=== PATIENT | male | born 1935 | race Caucasian/White ===

== ENCOUNTER → 2017-09-22 | Outpatient (CLI) | payer MEDICARE, OTHER ==
[2015-05-26 11:20] VITALS: BMI 30.6
[~2017-09-22] MED LIST: BICA50TA39 PO; CYAN20004 PO; DEGA80VI3 SQ; DIA5 PO; DIOVAN; ENZA40CA PO; HYDR-385 PO; IBU600 PO; KRIL500C2 PO; LACT1CAP6 PO; LEUP22.53 IM; LEV500 PO; LEVO75TA73 PO; LIDO700A29 TD; LISI-362 PO; LOSA25TA50 PO; MET500 PO; METF-1 PO; METFORMIN; MILK500C2 PO; MULT-977 PO; MULT1TAB54 PO; NAPR220C12 PO; PRA20 PO; PRAVASTATIN; ROSU20TA23 PO; SAW PALMETTO; TAM4 PO; TAMO10TA26 PO; TRAM-420 PO; VAL80 PO; ZOLE4VIA IV
--- NOTE | 2017-09-22 17:17 | RADIOLOGY IMAGING REPORT ---
FACILITY: [facility] PATIENT NAME: Navneet Sanabria : 1935 MR: [id number] V: [id number] EXAM DATE: ORDERING PHYSICIAN: JESUS ÁLVAREZ TECHNOLOGIST: Location: [facility] Patient: Navneet Sanabria : 1935 Visit/Account:[id number] Date of Sevice: 09/22/2017 WHOLE BODY BONE SCAN HISTORY: Prostate cancer TECHNIQUE: 21.9 mCi technetium 99m HDP was injected intravenously. Delayed anterior and posterior wh ole body gamma camera images were obtained. Additional gamma camera images: Right left lateral skull COMPARISON: MR T-spine March 05, 2016 bone scan November 26, 2015, CT abdomen pelvis November [address] of the thorax fibroid 17/09/2015 FINDINGS: Bone radiotracer activity: Increased uptake is noted at multiple contiguous ribs along the anterolat eral left chest wall. These correspond to old rib fractures. There is however a known sclerotic met astasis along the posterior aspect the left seventh rib there for as previously noted these areas of uptake may be a combination of old fractures and metastases. Increased uptake noted along the anteri or aspect of the right first rib similar to the prior study again consistent with known metastasis.. Increased uptake along the posterior right sixth rib is very faint although a similar location and a gain consistent with sclerotic metastasis on prior CT Increased uptake seen T5 similar to the prior study consistent with known metastatic focus. Increase d uptake seen over the mid to lower lumbar spine may be related to prior postsurgical changes. Previ ously noted increased uptake over the left hemisacrum is no longer seen. There is symmetric uptake o ralf the greater trochanters bilaterally likely degenerative. There is faint uptake seen along the me dial aspect of the right eighth and 10th ribs; correlation with cross-sectional imaging may be helpfu l. There are multifocal sites of degenerative type uptake as discussed in the previous dictation inc luding the shoulders the wrists the knees and the ankles Extraosseous radiotracer activity: Unremark able. Renal and urinary collecting system activity: Unremarkable. IMPRESSION: There are multiple areas of isotope uptake as detailed above. Most appear similar to the prior bone scan. These appear to be a combination of known sclerotic metastases and old fractures. There is faint isotope uptake seen along the medial aspect of the left eighth and 10th ribs new metas tatic foci cannot be totally excluded and correlation with cross-sectional imaging may be helpful Report Dictated By: Vilma Glasgow MD at 09/22/2017 2:01 PM Report E-Signed By: Vilma Glasgow MD at 09/22/2017 5:14 PM WSN:[id number]
== END ==
LOC: NUC 07:55
PROVIDERS: ATTEND Internal Medicine
DX: R91.8 Other nonspecific abnormal finding of lung field (principal)
CPT/HCPCS: 78306; A9503

== ENCOUNTER → 2017-11-17 | Outpatient (RCR) | payer MEDICARE, OTHER ==
[2015-05-26 11:20] VITALS: BMI 30.6
--- NOTE | 2017-08-19 15:15 | PT INITIAL EVALUATION ---
MEDICAL DIAGNOSIS: s/p back laminectomy surgery TREATMENT DIAGNOSIS: same, decreased BUE and B LE strength, decreased balance, altered gait DATE OF ONSET: 07/14/17 SUBJECTIVE: Navneet Sanabria presents to physical therapy s/p laminoplasty that occurred on the June. He reports that prior to the surgery he had increased low back pain and numbness/tingling down his B LE's with severe pain. He reports that following the surgery he no longer has numbness or tingling down his B LE's and no longer has low back pain. He reports that his current precautions included no heavy lifting over 15#, twisting, or turning for 4 months following the procedure. He reports that since the pain was severe and reduced his activity for approximately 4 months and as a result he has increased B UE and B LE weakness. He reports that he feels like his shoulders and hips are the weakness along with decreased endurance. He reports that he would like to return to fishing (fly) and walking 2-3 miles per day. He denies any pain. REHAB PROBLEM LIST: Increased Pain Decreased ROM Decreased Strength Decreased Endurance Decreased Balance Decreased Function Decreased ADL's Decreased Mobility Decreased Gait PREVIOUS MEDICAL HISTORY: See EMR OCCUPATION: Retired OBJECTIVE: Incision fully healed Posture: He demonstrates minimal B rounded shoulders, forward head, thoracic kyphosis, and decreased lumbar lordosis. No lateral shift present ROM: B UE's and B LE's WFL without any pain Strength: B shoulder flexion, abduction, scaption, ER: 3+/5 with pain. B shoulder IR: 4/5 without pain. B elbow flexion and extension: 4/5 without pain. B wrist flexion and extension: 4/5 without pain. R gross fish inspector: 45#, L gross fish inspector: 55#. B hip flexion, abduction, extension, B knee flexion and extension, and B ankle DF and PF: 3+/5 without any pain. Sensation: Intact: L2-S2 Special Tests: 6 minute walk test: 1283 feet without any rest breaks Mobility: Independent Gait: He demonstrated the following gait mechanics: normal step lengths, normal clearance, normal base of support, and decreased velocity. Balance: Firm surface, normal base of support, eyes opened: 60 seconds mild sway. Firm surface, decreased base of support, eyes opened: 60 seconds moderate sway. Firm surface, decreased base of support, eyes closed: 15 seconds severe sway. Firm surface, normal base of support, eyes closed. Compliant surface, normal base of support, eyes opened: 60 seconds moderate sway. Compliant surface, normal base of support, eyes opened: 60 seconds moderate sway. Complaint surface, normal base of support, eyes closed: 10 seconds severe sway. Complaint surface, decreased base of support, eyes closed : 5 seconds with severe sway. ASSESSMENT: Navneet will benefit from skilled physical therapy addressing the listed impairments to improve function and return to prior level of function. Short Term Goals 8 weeks: Pt will demonstrate improvements in B UE and B LE from baseline to 4+/ 5 or greater to improve function and QOL. 8 weeks: Pt will demonstrate improvements in his endurance so that he will be able to ambulate 2-3 miles without rest breaks so that he can return to fishing in order to return to prior level of function and improve QOL. 8 weeks: Pt will improve 4 stage balance from baseline to improve balance strategies in all conditions and be able to perform each condition for 60 seconds or greater to improve function and QOL. Patient's Goals walk 2-3 miles, return to fishing, improve strength, balance PLAN: Patient to be seen for Manual Therapy/STM/MET Strengthening/condition Range of Motion Spinal Stabilization Work Hardening/Cond Stretching Neuromuscular Re-ed Closed Chain Program Posture/Body mechanics Gait Trg/Balance Trg Home Exercise Program Therapeutic Activities 2x/Week for 2 Months If you have any questions, comments, or concerns about this report or plan, please contact me at . Thank you, Wilmar Alcantar, PT, DPT MTDD
--- NOTE | 2017-11-11 17:44 | PT PLAN OF CARE ---
Physician: Raeann Oliver DO Patient is being seen: 1-2x/week Therapist: Wilmar Alcantar, PT, DPT Medical Diagnosis: s/p back laminectomy surgery Treatment Diagnosis: same, decreased BUE and B LE strength, decreased balance, altered gait, vertigo Date of Onset: 07/14/17 Date of Initial Evaluation: 08/19/17 Date patient was last seen: 11/10/17 Number of treatments: 11 Number of cancellations/No shows: 3 INTERVENTIONS: Manual Therapy/STM/MET Strengthening/condition Range of Motion Spinal Stabilization Work Hardening/Cond Stretching Neuromuscular Re-ed Closed Chain Program Posture/Body mechanics Gait Trg/Balance Trg Home Exercise Program Therapeutic Activities GOALS: 8 weeks: Pt will demonstrate improvements in B UE and B LE from baseline to 4+/ 5 or greater to improve function and QOL. 8 weeks: Pt will demonstrate improvements in his endurance so that he will be able to ambulate 2-3 miles without rest breaks so that he can return to fishing in order to return to prior level of function and improve QOL. 8 weeks: Pt will improve 4 stage balance from baseline to improve balance strategies in all conditions and be able to perform each condition for 60 seconds or greater to improve function and QOL. PATIENT'S GOAL: walk 2-3 miles, return to fishing, improve strength, balance Status of Patient's Goals: Progressing Patient Compliance: Good Prognosis: Excellent Reasons for continuing therapy: This is a progress note for Navneet Sanabria. He is progressing well within PT. His vertigo has completely abolished. His B UE, core , and B LLE's continues to be decreased but has made some improvements within PT. We will continue to improve strength and return to prior level of function. Posture: He demonstrates minimal B rounded shoulders, forward head, thoracic kyphosis, and decreased lumbar lordosis. No lateral shift present ROM: B UE's and B LE's WFL without any pain Strength: B shoulder flexion, abduction, scaption, ER: 4/5 with pain. B shoulder IR: 4/5 without pain. B elbow flexion and extension: 4/5 without pain. B wrist flexion and extension: 4+/5 without pain. R gross public safety director: 45#, L gross public safety director: 55#. B hip flexion, abduction, extension, B knee flexion and extension, and B ankle DF and PF: 4+/5 without any pain. Special Tests: 6 minute walk test: 1283 feet without any rest breaks Mobility: Independent If you have any questions, please contact me at [phone]. Thank you, Wilmar Alcantar PT, DPT [place]
[~2017-11-17] MED LIST changes: +BICA50TA13 PO; -BICA50TA39 PO
== END ==
LOC: PT 08-19 10:30
PROVIDERS: ATTEND Family Medicine
DX: Z47.89 Encounter for other orthopedic aftercare (principal); M62.81 Muscle weakness (generalized); R26.89 Other abnormalities of gait and mobility
CPT/HCPCS: 97162

== ENCOUNTER → 2017-12-02 | Outpatient (CLI) | payer MEDICARE, OTHER ==
[2015-05-26 11:20] VITALS: BMI 30.6
[~2017-12-02] MED LIST changes: -LOSA25TA50 PO; +LOSA25TA52 PO
== END ==
LOC: SPU 09:12
PROVIDERS: ATTEND Family Medicine
DX: E78.5 Hyperlipidemia, unspecified (principal); E11.65 Type 2 diabetes mellitus with hyperglycemia; E03.9 Hypothyroidism, unspecified; E87.8 Other disorders of electrolyte and fluid balance, not elsewhere classified
CPT/HCPCS: 82465; 83718; 84478

== ENCOUNTER 2017-12-07 13:17 | Outpatient (RCR) | payer MEDICARE, OTHER ==
[2015-05-26 11:20] VITALS: Ht 168.4 cm; Wt 89.9 kg
[2017-09-16 14:01] VITALS: BP 125/70
[2017-09-16 14:44] LABS: PLATELET COUNT, AUTOMATED 311 K/uL (150-450)
--- NOTE | 2017-09-17 17:58 | ONCOLOGY FOLLOW UP NOTE ---
EVENT DATE: September 16, 2017 CHIEF COMPLAINT/REASON FOR VISIT Mr. Sanabria is a pleasant 82-year-old gentleman with metastatic prostate cancer, currently on Lupron and XTANDI, here of followup. HISTORY OF PRESENT ILLNESS Mr. Sanabria returns. He had moved to [place] late in 2016, but he has now moved back. Unfortunately his is struggling with severe dementia. We added the enzalutamide in 2015 at a dose of two pills daily due to side effects. His PSA was as high as 12 in 2010, and was approximately 1 at the time of his move to [place] in the fall. My understanding is that he has had no increases in the PSA, and we have a pending level today. He unfortunately did suffer a pathologic fracture of L4, which I believe was likely due to old damage as opposed to progression, however, we do need to get an updated PSA today to make sure we do not need to consider other therapy. ONCOLOGY HISTORY Patient was first diagnosed in June 2007 with a Tootie 7 prostate cancer with PSA of 18. Initially treated with Lupron and external beam radiation therapy with seed implants in October of 2007. He had focal radiation to the L4 vertebral body in 2012. In 2013 he had new bone metastasis and restarted Casodex. Unfortunately he then developed progression in 2014 and tried Firmagon due to Lupron intolerance. However, in 2015 he had a rise in PSA and so we switched back to Lupron and initiated XTANDI. Overall we have had good control since that time. FAMILY HISTORY Remarkable for diabetes. SOCIAL HISTORY Patient is and his is struggling with severe dementia. Former smoker. REVIEW OF SYSTEMS CONSTITUTIONAL: No fevers, chills, significant weight change. HEENT: No headache or vision changes. CARDIOVASCULAR: No chest pain, dyspnea on exertion or edema. RESPIRATORY: No shortness of breath, wheeze, cough. GASTROINTESTINAL: No nausea, vomiting, diarrhea or constipation. GENITOURINARY: No dysuria or hematuria. MUSCULOSKELETAL: No weakness or joint pain. PSYCHIATRIC: No anxiety or depression currently. The remainder of the 14-point review of systems is otherwise negative. K PHYSICAL EXAMINATION VITAL SIGNS: Blood pressure 125/70, pulse 81, respiratory rate 16, temperature is 97 Fahrenheit, oxygen saturation 91% on room air. Weight 89 kg. Pain 2/10 in the back which is much improved compared to the past. Fatigue 1/10. K GENERAL: In stable condition, resting comfortably in the chair. HEENT: Normocephalic, atraumatic. CARDIOVASCULAR: Deferred. ABDOMEN: Soft, nontender. EXTREMITIES: No clubbing, cyanosis or edema. SKIN: No concerning findings. Remainder of full physical exam deferred today to amount of time spent in counseling and coordination of care. IMPRESSION AND PLAN Mr. Sanabria is a pleasant 81-year-old gentleman with the followin. Metastatic prostate cancer, currently on Lupron, enzalutamide and Zometa. We would like to continue the androgen deprivation therapy indefinitely. He is finding his therapy to be overall tolerable. His PSA has ranged between 0-3 over the past year and a half since using this therapy. His doubling time is quite low. We have a repeat PSA pending today. 2. Chronic back pain with severe spinal stenosis and a history of bone metastasis. He suffered a pathologic fracture from L4 after having radiation to that area about five years ago. He then had back surgery in [place] and this has been greatly beneficial to him. We will continue all of his therapy and see him every two-three months approximately. I answered all of his questions today. Billing: Return visit level 4. Total time 30 minutes, counseling time 20. MTDD
[2017-10-07 12:40] VITALS: BP 149/78
--- NOTE | 2017-10-07 16:47 | Oncology Progress Note ---
History of Present Illness Evaluation Evaluation Date: Oct 07, 2017 Evaluation Time: 13:00 Primary Care Provider Primary Care Provider: Benito Cary DO Accompanied by Accompanied by: Self Last seen by : 09/16/2017 Chief Complaint Chief Complaint " I feel easily tired during my work out exercise routine." Oncology History Oncology History Patient was first in - June 2007 diagnosed with a Lissie 7 prostate cancer with PSA of 18. - October of 2007 initially treated with Lupron and external beam radiation therapy with seed implants in October of 2007. - He had focal radiation to the L4 vertebral body in 2012. - In 2013 he had new bone metastasis and restarted Casodex. - 2014 Unfortunately he then developed progression in 2014 and tried Firmagon due to Lupron intolerance. - in 2015 he had a rise in PSA and so we switched back to Lupron and initiated XTANDI. Overall we have had good control since that time. Treatment Treatment Lupron and initiated XTANDI. HPI HPI Mr. Daniele Toth, is a pleasant 82-year-old gentleman who has metastatic prostate cancer, currently on Lupron and XTANDI. Initially diagnosed Lissie 7 prostate cancer with PSA of 18 in June 2007. s/p laminectomy of L4 on 2017 in [place]. Patient presents to the cancer center today with some questions in regards to his lab work, and patient informs me that ever since he had the surgery laminectomy in June 2017. He reports feeling easily tired doing his physical therapy exercises he is not able to do the exercises using his own body for more than 2 minutes at a time without having to take a break. Patient is able to perform his ADLs without restriction and he walks at least 1 mile per day. He is currently moving to a Skilled Nursing home [facility] here in [place]. Denies SOB, cardiac type chest pain, no chills, no night sweats, no fevers at home, no changes in appetite, no changes in bowel or bladder pattern. Living Conditions Lives in Skilled Nursing Home with [facility]. [facility] Patient History: Diabetes mellitus type I FATHER Diabetes mellitus type II CHILD CHILD FH: skin cancer MOTHER (History of [place] cell tumor in her mid-80's) Social/Occupational History Social History: Social History This is a 82 Yr old White male, he is M and has [] Children Hx Smoking: Yes Smoking Status: Former Smoker, Light Tobacco Smoker Exposure to Second Hand Smoke?: Yes Allergies & Medications Allergies: Coded Allergies: bacitracin (Verified Allergy, Mild, PROBLEMS HEALING AFTER NASAL OR, AVOIDS, 03/02/16) gramicidin D (Verified Allergy, Mild, PROBLEMS HEALING AFTER NASAL OR, AVOIDS, 03/02/16) neomycin (Verified Allergy, Mild, PROBLEMS HEALING AFTER NASAL OR, AVOIDS , 03/02/16) polymyxin B (Verified Allergy, Mild, PROBLEMS HEALING AFTER NASAL OR, AVOIDS, 03/02/16) levofloxacin (Verified Allergy, Unknown, 03/02/16) prednisone (Verified Adverse Reaction, Severe, 03/02/16) PT STATES IT KEEPS HIM AWAKE FOR HOURS Home Meds Active Scripts Enzalutamide (XTANDI) 40 Mg Capsule, 160 MG PO DAILY, #120 CAPSULE 11 Refills Prov:JESUS ÁLVAREZ MD 09/16/17 Hydrocodone Bit/Acetaminophen (HYDROCODON-ACETAMINOPHEN 5-325) 1 Each Tablet, 1 EACH PO Q6H for PAIN, #45 TAB Prov:DARIUSZ RAMOS MIXER LEVER OPERATOR-BC, ONC 02/06/17 Reported Medications Naproxen Sodium (ALEVE) 220 Mg Capsule, 220 MG PO TID Y for PAIN, CAPSULE 01/29/16 Leuprolide Acetate (LUPRON DEPOT) 22.5 Mg Syringekit, 22.5 MG IM 01/29/16 Milk Thistle (MILK THISTLE) 500 Mg Capsule, 1000 MG PO DAILY, CAPSULE 05/25/15 Cyanocobalamin (Vitamin B-12) (Vitamin B-12) 2,000 Mcg Tablet, 2000 MCG PO DAILY 04/06/14 Levothyroxine Sodium (LEVOTHYROXINE SODIUM) 75 Mcg Tablet, 75 MCG PO QODAY 01/12/14 Metformin Hcl (GLUCOPHAGE) 500 Mg Tablet, 2 TAB PO BID TAKE THREE TABLETS BY MOUTH ONCE A DAY WITH FOOD 01/12/14 Tamsulosin Hcl (Flomax) 0.4 Mg Cap, 0.4 MG PO QDAY Y, 0 Refills 04/30/10 Review of Systems Constitution: Denies Appetite/Weight Change, Denies Fever/Chills/Sweating, Denies Recent Infection, Denies Other HEENT: No EARS: Tinnitus, No NOSE: Nasal Discharge, No THROAT: Sore Throat, No EYES: Dipolpia, No EARS: Hearing Problems, No NOSE: Epistaxis, No THROAT: Mouth Ulcers, No EYES: Vision Change, No OTHER Respiratory: No Cough, No Expectoration, No Hemoptysis, No Shortness of Breath , No OTHER Cardiovascular: No Chest Pain, No Orthopnea, No Edema, No Palpitations, No OTHER Gastrointestinal: No Nausea, No Vomitting, No Diarrehea, No Constipation, No Heart Burn, No Swallowing Difficulties, No Abdominal Pain, No Other Gentiourinary: Nocturia Musculoskeletal: Muscle Pain, Joint Pain, Bone Pain Hematological: No Bleeding, No Weakness, No Enlarged Lyph Nodes, No Bruising, Fatigue, No Other Skin: No Skin Rash, No Lumps, No Erythema, No Dry Skin, No Moist Skin, No Other Psychiatric: Anxiety Vital Signs Vital Signs Temperature: 97.4 Pulse: 93 BP Systolic: 149 BP Diastolic: 78 Respiratory Rate: 16 O2 SAT: 91 O2 Delivery: Height (feet) Height (inches) Weight lb: 192 Weight oz: 7.0 Weight Kg (Sathish): Pain: 0 Physical Exam General: Looks Stable, Well Developed, Well Nourished, Other HEENT: HEAD:Atraumatic, No EYES: Conjuctivitis, No EYES: Icterus, No MOUTH: Mucocitis, No MOUTH: Oral Thrush, No SINUS: Tenderness to Palpation, No Other Neck: Supple Lungs: Clear to Auscultation, Percussion Bilaterally Heart: Regular Rate and Rhythm Abdomen: Soft and Nontender Lymphatics: No Peripheral Lymphadenopathy, No Other Psychiatric: Mood appears normal Skin: No Skin Rashes, No Bruising, No Purpura, No Moist Desquamation, No Dry Desquamation, No Errythema, No Mild Errythema, No Moderate Errythema, No Severe Errythema, No Induration, No Other Assessment and Plan Assessment and Plan Mr. Daniele Toth, is a pleasant 82-year-old gentleman who has metastatic prostate cancer, currently on Lupron and XTANDI. Initially diagnosed Lissie 7 prostate cancer with PSA of 18 in June 2007. s/p laminectomy of L4 on 2017 in [place]. DIAGNOSTIC DATA CBC, CMP, within Limits, Except ferritin 15; B12 961; PSA 2.54 1. Metastatic prostate cancer, PSA 2.54, currently on Lupron, enzalutamide and Zometa. We would like to continue the androgen deprivation therapy indefinitely. He is finding his therapy to be overall tolerable. His PSA has ranged between 0-3 over the past year and a half since using this therapy. His doubling time is quite low. We have a repeat PSA pending today. 2. Chronic back pain with severe spinal stenosis and a history of bone metastasis. s/p laminectomy of L4 on 07/14/2017 in [place]. patient reports minimal pain after surgery. He suffered a pathologic fracture from L4 after having radiation to that area about five years ago. He then had back surgery in [place] and this has been greatly beneficial to him. 3. Fatigue. hgb is 14.0, ferritin 15. He reports feeling easily tired doing his physical therapy exercises he is not able to do the exercises using his own body for more than 2 minutes at a time without having to take a break. Patient is able to perform his ADLs without restriction and he walks at least 1 mile per day. denies changes in appetite and eating a balanced meal. I had patient walked the hallway of the cancer center for a good 5 minutes with no signs of fatigue or SOB exertion and his O2 sat remained at 935 room air. PLAN - Repeat iron deficiency work up, and discuss possible appropriate supplementation with dr. Álvarez. -Patient to have Gatorade mixed with water during his exercise, and to update on stamina during exercise. - Continue close monitoring, and RTC PRN. - Contact [facility] center for any issues or concerns. - Go to ER immediately if profound fatigue, SOB, chest pain, or fever. TIME SPENT: 20 minutes 15> minutes includes but not limited to discussion, counselling and co-ordination~ of care. Discussion with other health care providers, record review, review of lab work, diagnostic tests. Plan discussed extensively with patient. All the questions answered today. Thank you for the opportunity to be involved in the care of Billing Level: Return visit 3 RICHY VALLE, ONC Oct 07, 2017 16:47
[2017-10-14 09:14] VITALS: BP 134/85
[2017-10-14 09:15] VITALS: BP 134/85
[2017-10-14 09:40] LABS: PLATELET COUNT, AUTOMATED 271 K/uL (150-450)
[2017-10-14 11:28] VITALS: BP 102/80
--- NOTE | 2017-10-14 14:19 | Oncology Progress Note ---
History of Present Illness Evaluation Evaluation Date: Oct 14, 2017 Evaluation Time: 10:10 Primary Care Provider Primary Care Provider: Benito Cary DO Accompanied by Accompanied by: Self Last seen by : 09/16/2017 Chief Complaint Chief Complaint management treatment for metastatic prostate cancer Oncology History Oncology History Patient was first in - June 2007 diagnosed with a Ellinger 7 prostate cancer with PSA of 18. - October of 2007 initially treated with Lupron and external beam radiation therapy with seed implants in October of 2007. - He had focal radiation to the L4 vertebral body in 2012. - In 2013 he had new bone metastasis and restarted Casodex. - 2014 Unfortunately he then developed progression in 2014 and tried Firmagon due to Lupron intolerance. - in 2015 he had a rise in PSA and so we switched back to Lupron and initiated XTANDI. Overall we have had good control since that time. Treatment Treatment 10/14/2017 Currently on Zoledronic acid - Lupron and XTANDI. HPI HPI Mr. Daniele Toth, is a pleasant 82-year-old gentleman who has metastatic prostate cancer, currently on Lupron and XTANDI. Initially diagnosed Tootie 7 prostate cancer with PSA of 18 in June 2007. s/p laminectomy of L4 on 2017 in [place]. Patient presents to the cancer center today for his Zometa treatment. He reports no issues going on with is health today. he just moved to the Assisted home yesterday. He did try drinking Gatorade during his exercise, and this improved his stamina during exercise. he is being cautious with sugar in the sports drinks, by diluting with water as he is diabetic. He continues to walk at least 1 mile per day, he denies shortness of breath, cardiac type chest pain, no chills, no night sweats, no fevers at home, no changes in appetite, changes in bowel or bladder pattern. Living Conditions Lives at retired Home. Diagnostic Studies Result Diagram: 10/14/17 0930 10/14/17 0930 PM Patient History: Diabetes mellitus type I FATHER Diabetes mellitus type II CHILD CHILD FH: skin cancer MOTHER (History of Ya cell tumor in her mid-80's) Social/Occupational History Social History: Social History This is a 82 Yr old White male, he is M and has [] Children Hx Smoking: Yes Smoking Status: Former Smoker, Light Tobacco Smoker Exposure to Second Hand Smoke?: Yes Allergies & Medications Allergies: Coded Allergies: bacitracin (Verified Allergy, Mild, PROBLEMS HEALING AFTER NASAL OR, AVOIDS, 03/02/16) gramicidin D (Verified Allergy, Mild, PROBLEMS HEALING AFTER NASAL OR, AVOIDS, 03/02/16) neomycin (Verified Allergy, Mild, PROBLEMS HEALING AFTER NASAL OR, AVOIDS , 03/02/16) polymyxin B (Verified Allergy, Mild, PROBLEMS HEALING AFTER NASAL OR, AVOIDS, 03/02/16) levofloxacin (Verified Allergy, Unknown, 03/02/16) prednisone (Verified Adverse Reaction, Severe, 03/02/16) PT STATES IT KEEPS HIM AWAKE FOR HOURS Home Meds Active Scripts Enzalutamide (XTANDI) 40 Mg Capsule, 160 MG PO DAILY, #120 CAPSULE 11 Refills Prov:JESUS ÁLVAREZ MD 09/16/17 Hydrocodone Bit/Acetaminophen (HYDROCODON-ACETAMINOPHEN 5-325) 1 Each Tablet, 1 EACH PO Q6H for PAIN, #45 TAB Prov:DARIUSZ RAMOS FORK LIFT TECHNICIAN-BC, ONC 02/06/17 Reported Medications Naproxen Sodium (ALEVE) 220 Mg Capsule, 220 MG PO TID Y for PAIN, CAPSULE 01/29/16 Leuprolide Acetate (LUPRON DEPOT) 22.5 Mg Syringekit, 22.5 MG IM 01/29/16 Milk Thistle (MILK THISTLE) 500 Mg Capsule, 1000 MG PO DAILY, CAPSULE 05/25/15 Cyanocobalamin (Vitamin B-12) (Vitamin B-12) 2,000 Mcg Tablet, 2000 MCG PO DAILY 04/06/14 Levothyroxine Sodium (LEVOTHYROXINE SODIUM) 75 Mcg Tablet, 75 MCG PO QODAY 01/12/14 Metformin Hcl (GLUCOPHAGE) 500 Mg Tablet, 2 TAB PO BID TAKE THREE TABLETS BY MOUTH ONCE A DAY WITH FOOD 01/12/14 Tamsulosin Hcl (Flomax) 0.4 Mg Cap, 0.4 MG PO QDAY Y, 0 Refills 04/30/10 Review of Systems Constitution: Denies Appetite/Weight Change, Denies Fever/Chills/Sweating, Denies Recent Infection, Denies Other HEENT: No EARS: Tinnitus, No NOSE: Nasal Discharge, No THROAT: Sore Throat, No EYES: Dipolpia, No EARS: Hearing Problems, No NOSE: Epistaxis, No THROAT: Mouth Ulcers, No EYES: Vision Change, No OTHER Respiratory: No Cough, No Expectoration, No Hemoptysis, No Shortness of Breath , No OTHER Cardiovascular: No Chest Pain, No Orthopnea, No Edema, No Palpitations, No OTHER Gastrointestinal: No Nausea, No Vomitting, No Diarrehea, No Constipation, No Heart Burn, No Swallowing Difficulties, No Abdominal Pain, No Other Gentiourinary: Nocturia Musculoskeletal: Muscle Pain, Joint Pain, Bone Pain Hematological: No Bleeding, No Weakness, No Enlarged Lyph Nodes, No Bruising, Fatigue, No Other Skin: No Skin Rash, No Lumps, No Erythema, No Dry Skin, No Moist Skin, No Other Psychiatric: Anxiety Vital Signs Vital Signs Temperature: 97.5 Pulse: 76 BP Systolic: 102 BP Diastolic: 80 Respiratory Rate: 16 O2 SAT: 93 O2 Delivery: Height (feet) Height (inches) 66.30 Weight lb: 192 Weight oz: 7.0 Weight Kg (Sathish): Pain: 0 Physical Exam General: Looks Stable, Well Developed, Well Nourished, Other HEENT: HEAD:Atraumatic, No EYES: Conjuctivitis, No EYES: Icterus, No MOUTH: Mucocitis, No MOUTH: Oral Thrush, No SINUS: Tenderness to Palpation, No Other Neck: Supple Lungs: Clear to Auscultation, Percussion Bilaterally Heart: Regular Rate and Rhythm Abdomen: Soft and Nontender Lymphatics: No Peripheral Lymphadenopathy, No Other Psychiatric: Mood appears normal Skin: No Skin Rashes, No Bruising, No Purpura, No Moist Desquamation, No Dry Desquamation, No Errythema, No Mild Errythema, No Moderate Errythema, No Severe Errythema, No Induration, No Other Assessment and Plan Assessment and Plan Daniele Toth, is a pleasant 82-year-old gentleman who has metastatic prostate cancer, currently restarted Zometa on 10/14/17. Initially diagnosed Tootie 7 prostate cancer with PSA of 18 in June 2007. s/p laminectomy of L4 on 2017 in [place]. Patient presents to the cancer center today for his Zometa treatment. he feels great, with no major health issues reported today. DIAGNOSTIC DATA CBC, CMP, within Limits, Except ferritin 15; B12 961; PSA on 09/16/17 is 2.54 1. Metastatic prostate cancer, PSA 2.54, currently on Lupron, enzalutamide and we resumed Zometa today . We would like to continue the androgen deprivation therapy indefinitely. He is finding his therapy to be overall tolerable. His PSA has ranged between 0-3 over the past year and a half since using this therapy. His doubling time is quite low. We will repeat PSA [id number]. 2. Chronic back pain with severe spinal stenosis and a history of bone metastasis. s/p laminectomy of L4 on 07/14/2017 in [place]. patient reports minimal pain after surgery. He suffered a pathologic fracture from L4 after having radiation to that area about five years ago. He then had back surgery in [place] and this has been greatly beneficial to him. 3. Fatigue. mainly during exercise, and PT. mildly improving after started taking sports drinks during workouts. 02 sat is 93% on Room Air, No SOB. PLAN - Proceed with treatment as planned. -Patient to have Gatorade mixed with water during his exercise, and to update on stamina during exercise. - Continue close monitoring, and RTC PRN. - Contact cancer center for any issues or concerns. - Go to ER immediately if profound fatigue, SOB, chest pain, or fever. -Need to clarify if patient is currently on Lupron, and Xtandi. -Education, patient instructed to go to ER immediately and or call Clinic if any Shortness of Breath, Temp >/=100.4, fevers, chills, cardiac type chest pain , bleeding, excessive bruising, headaches, blurry vision, dizziness, abdominal pain, difficulty swallowing, and pain unrelieved by medication. TIME SPENT: 20 minutes 15 > minutes includes but not limited to discussion, counselling and co-ordination~ of care. Discussion with other health care providers, record review, review of lab work, diagnostic tests. Plan discussed extensively with patient. All the questions answered today. Thank you for the opportunity to be involved in the care of Daniele Toth Billing Level: Return visit 3 RICHY VALLE, ONC Oct 14, 2017 14:19
[2017-12-02 09:27] LABS: PLATELET COUNT, AUTOMATED 280 K/uL (150-450)
[~2017-12-07] VITALS: Ht 168.4 cm; Wt 89.9 kg
[~2017-12-07 13:17] MED LIST changes: +DEXTROSE 5%(*) 100 ML BAG 100 ML IVPB PRN; +LIDOCAINE/SOD BICARB 8.4% SYR ID PRN; +NS 0.9% IVPB ONE; +NS(*) 0.9% 100 ML BAG 100 ML IVPB PRN; +ZOLEDRONIC ACID IVPB ONE
[2017-12-07 13:18] VITALS: BP 148/73
--- NOTE | 2017-12-08 19:44 | [facility] ONCOLOGY NOTE ---
EVENT DATE: December 07, 2017 CHIEF COMPLAINT/REASON FOR VISIT Mr. Sanabria is a very pleasant 82-year-old gentleman with metastatic prostate cancer, currently on Xtandi, and needing to resume Lupron as soon as possible who is here for followup. HISTORY OF PRESENT ILLNESS Mr. Sanabria returns. He moved to [place] in late 2016 but is now back. Unfortunately, his is struggling with severe dementia and this is taking a considerable amount of his time. I am very concerned that Slade is not taking care of himself. His diabetes is less controlled and he is having issues with neuropathy. He has not had a dose of Nupron in nearly six months and he is significantly overdue. As a result, we are seeing his PSA rise and it has gone from 2 to 4 but this is due to the fact that he is not on his prescribed therapy. His PSA has been as high as 12 and is currently at 4. He did previously suffer a pathology fracture from disease of L4 and I believe this was due to old damage as opposed to a new lesion but we may need to get additional imaging if pain returns or increases. No new pain at this time. He does have chronic right shoulder pain and thinks that a recent surgery with pressure on it made it worse and had imaging that was reportedly negative. ONCOLOGY HISTORY Patient was first diagnosed in June 2007 with a Tootie 7 prostate cancer with PSA of 18. Initially treated with Lupron and external beam radiation therapy with seed implants in October of 2007. He had focal radiation to the L4 vertebral body in 2012. In 2013 he had new bone metastasis and restarted Casodex. Unfortunately he then developed progression in 2014 and tried Firmagon due to Lupron intolerance. However, in 2015 he had a rise in PSA and so we switched back to Lupron and initiated XTANDI. Overall we have had good control since that time. FAMILY HISTORY Remarkable for diabetes. SOCIAL HISTORY Patient is and his is struggling with severe dementia. Former smoker. REVIEW OF SYSTEMS CONSTITUTIONAL: No fevers, chills, significant weight change. HEENT: No headache or vision changes. CARDIOVASCULAR: No chest pain, dyspnea on exertion or edema. RESPIRATORY: No shortness of breath, wheeze, cough. GASTROINTESTINAL: No nausea, vomiting, diarrhea or constipation. GENITOURINARY: No dysuria or hematuria. MUSCULOSKELETAL: No weakness or joint pain. PSYCHIATRIC: No anxiety or depression currently. SKIN: No concerning findings. NEUROLOGIC: He does have some numbness consistent with carpal tunnel of the left hand as well as some mild diabetic neuropathy. The remainder of the 14-point review of systems is otherwise negative. PHYSICAL EXAMINATION VITAL SIGNS: Blood pressure 143/73, pulse 91, respiratory rate 16, temperature 97.1 Fahrenheit, oxygen saturation 92% on room air, weight 89.9 kg. Pain 0/10. Fatigue 2/10. GENERAL: In stable condition, resting comfortably in the chair. HEENT: Normocephalic, atraumatic. CARDIOVASCULAR: Deferred. ABDOMEN: Soft, nontender. No organomegaly or masses. Obese. EXTREMITIES: No clubbing, cyanosis or edema. NEUROLOGIC: The patient has numbness of the left hand that is in the median nerve distribution and I agree he should follow up with orthopedics later this month. He does also describe some pins and needles sensation in the feet, which is likely diabetic neuropathy given his uncontrolled blood sugars. SKIN: No concerning findings today on limited exam. EXTREMITIES: No clubbing, cyanosis or edema. Remainder of full physical exam deferred today due to amount of time spent in counseling and coordination of care. IMPRESSION AND PLAN Mr. Sanabria is a pleasant 81-year-old gentleman with the followin. Metastatic prostate cancer, currently on enzalutamide and Zometa. He should be on Lupron but is overdue for his dose. We would like to continue the androgen deprivation therapy indefinitely. Overall, he is tolerating therapy well. He has a low doubling time but it is increasing due to the fact that he is off Lupron. Dr. Aceves made multiple efforts to reach out to the patient but the patient has been unable to make an appointment. This is in large part due to his psychosocial issues, caring for his who has significant dementia. 2. Chronic back pain with severe spinal stenosis and a history of bone metastasis at L4. He had radiation to that area and suffered a pathologic fracture. He had back surgery in [place] and his back pain has been much improved. We will continue all of his therapy and see him every two-three months. He needs to get back on Lupron as soon as possible. Billing: Return visit level 4. Total time 30 minutes, counseling time 20. MTDD
== END 2017-12-14 ==
LOC: ONC 13:17
PROVIDERS: ATTEND Internal Medicine
DX: C61 Malignant neoplasm of prostate (principal); C79.51 Secondary malignant neoplasm of bone; Z92.3 Personal history of irradiation; Z87.891 Personal history of nicotine dependence; M54.9 Dorsalgia, unspecified; E78.5 Hyperlipidemia, unspecified; E11.65 Type 2 diabetes mellitus with hyperglycemia; E03.9 Hypothyroidism, unspecified; E87.8 Other disorders of electrolyte and fluid balance, not elsewhere classified
CPT/HCPCS: 36415; 82607; 82728; 82746; 83735; 84153; 84443; 85025; 96365; G0463; J3489; J7050; 82040; 82247; 82310; 82374; 82435; 82465; 82565; 82947; 83718; 84075; 84132; 84155; 84295; 84450; 84460; 84478; 84520; 99212

== ENCOUNTER 2018-04-19 08:26 | Outpatient (RCR) | payer MEDICARE, OTHER ==
[2015-05-26 11:20] VITALS: Wt 87.1 kg
--- NOTE | 2017-12-17 10:01 | NUR ---
Called patient and reminded him to go in and see Dr. Aceves and reestablish Lupron injections since returning to [place]. Also verified with him that he is continuing to take the Xtandi. He stated that he was planning to call Dr. Aceves's office today and get on his schedule. He also stated that he is almost out of the Xtandi and will be calling them today also. He states that it has been difficult at home as his is suffering from dementia. Informed him to let us know if we could help in any way. Nurse also made a referral to social media executive to contact patient and see if we can help in any way.
[2018-01-20 12:25] VITALS: BP 125/78
[2018-01-20 13:21] LABS: PLATELET COUNT, AUTOMATED 338 K/uL (150-450)
--- NOTE | 2018-01-20 15:53 | ONCOLOGY FOLLOW UP NOTE ---
EVENT DATE: January 20, 2018 CHIEF COMPLAINT "I'd like to stop the Xtandi." HISTORY OF PRESENT ILLNESS Patient is an 82-year-old male who is currently being treated for metastatic prostate cancer. He has been on Xtandi and Lupron. He last received Lupron on 01/11/2018. He does have the expected hot flashes associated with this. Today, he is overwhelmed by side effects from the Xtandi and would like to consider stopping this. He does have some mild edema. He has had some alternating diarrhea and constipation. He is overall very weak and fatigued. He has chronic back pain. He recently described some hallucinations with bad dreams. He is also dizzy at times. He underwent left carpal tunnel surgery yesterday, which he tolerated fairly well. Left hand is elevated, although somewhat swollen. ONCOLOGY HISTORY Patient was first diagnosed in June 2007 with a Tootie 7 prostate cancer with PSA of 18, Initially treated with Lupron and external beam radiation therapy with seed implants in October 2007. He had focal radiation to the L4 vertebral body in 2012. In 2013, he had new bone metastasis and restarted Casodex. Unfortunately, he then developed progression in 2014 and tried Firmagon due to Lupron intolerance. However, in 2015, he had a rise in PSA, and so we switched back to Lupron and initiated Xtandi. PSA has been rising slowly, last 4.5. Patient requests to discontinue the Xtandi. MEDICAL HISTORY 1. Prostate cancer, 2007. 2. Type 2 diabetes. 3. Hypertension. 4. Hyperlipidemia. SURGICAL HISTORY 1. Back surgery times four. 2. L4 fusion, February 2017. 3. Bilateral lens implant. 4. Left carpal tunnel surgery, December 2017. 5. Bilateral shoulder arthroscopy. FAMILY HISTORY Positive for diabetes and hyperlipidemia. SOCIAL HISTORY Patient is . 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 He has two daughters. He smoked, but quit many years ago. REVIEW OF SYSTEMS A 12-point review of systems is performed and is negative except as stated in the History of Present Illness. PHYSICAL EXAMINATION VITAL SIGNS: Weight 96.4 kg. BP 125/78, P 88, R 16, temp 98.1, O2 sat 91%. GENERAL: Patient is a well-developed, well-nourished, elderly male in no acute distress. HEAD: Normocephalic, atraumatic. EYES: Sclerae anicteric. MOUTH: Moist mucous membrane. No lesions noted. No pharyngeal erythema. NECK: Supple. No masses. CARDIOVASCULAR: Heart rate regular without murmur, S3, or S4. LUNGS: Clear bilaterally. ABDOMEN: Soft, nontender, nondistended. Active bowel sounds. EXTREMITIES: Trace pedal edema bilaterally. Left hand edema. NEUROLOGIC: Nonfocal. LABORATORY Most recent PSA on 12/02/2017 was 4.5, increased from 2.5 in August 2017. IMPRESSION AND PLAN The patient is an 82-year-old male who is being treated for metastatic prostate cancer, currently on Xtandi, Lupron, and Zometa. 1. Metastatic prostate cancer. Patient presents today with multiple complaints and desires to stop taking the enzalutamide. He does not believe that the benefits outweigh the side effects. He is somewhat overwhelmed by how poorly he feels and feels comfortable with his decision to stop this medication. We discussed the importance of continuing Lupron. He last received this on 01/11/2018 and will continue to receive this on an every three-month basis. 2. Bone metastases. Continue Zometa every three months. 3. Chronic back pain. He has had long-standing issues from this. Unfortunately, he is limited in his activity, but feels he will be able to become more active once off the enzalutamide. 4. CBC, CMP, and PSA today. 5. Follow up with Dr. Mcfarlane on 02/10/2018 for continued care. DARRICK
[2018-02-10 09:07] VITALS: BP 140/82
--- NOTE | 2018-02-10 12:47 | ONCOLOGY FOLLOW UP NOTE ---
EVENT DATE: February 10, 2018 CHIEF COMPLAINT Followup for metastatic prostate cancer. HISTORY OF PRESENT ILLNESS Patient is an 83-year-old male who is being followed for metastatic prostate cancer. He had been on both Xtandi and Lupron. He last received Lupron on January 11, 2018. When seen on January 20, 2018, he had been having significant side effects from the Xtandi including dizziness, fatigue and some hallucinations with bad dreams. He had stopped this medication in mid December. Today, he notes that he feels markedly improved and back to baseline after stopping the Xtandi. However, PSA has increased. He does have chronic low back pain but feels this is stable. ONCOLOGY HISTORY Patient was first diagnosed in June 2007 with a Tootie 7 prostate cancer with PSA of 18, Initially treated with Lupron and external beam radiation therapy with seed implants in October 2007. He had focal radiation to the L4 vertebral body in 2012. In 2013, he had new bone metastasis and restarted Casodex. Unfortunately, he then developed progression in 2014 and tried Firmagon due to Lupron intolerance. However, in 2015, he had a rise in PSA, and so we switched back to Lupron and initiated Xtandi. PSA has been rising slowly, last 4.5. Patient self-discontinued Xtandi in mid December 2017. PSA again increased to 10.5. MEDICAL HISTORY 1. Prostate cancer, 2007. 2. Type 2 diabetes. 3. Hypertension. 4. Hyperlipidemia. SURGICAL HISTORY 1. Back surgery times four. 2. L4 fusion, February 2017. 3. Bilateral lens implant. 4. Left carpal tunnel surgery, December 2017. 5. Bilateral shoulder arthroscopy. FAMILY HISTORY Positive for diabetes and hyperlipidemia. SOCIAL HISTORY Patient is . 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 He has two daughters. He smoked, but quit many years ago. MEDICATIONS 1. Hydrocodone 5/325 mg every six hours p.r.n. pain. 2. Naproxen 220 mg t.i.d. 3. Mild thistle. 4. B12. 5. Levothyroxine 75 mcg tablet. 6. Metformin 500 mg two b.i.d. 7. Flomax 0.4 mg daily. ALLERGIES NEOSPORIN and LEVOFLOXACIN. REVIEW OF SYSTEMS A 12-point review of systems is performed and is negative except as stated above. PHYSICAL EXAMINATION VITAL SIGNS: Vital signs reviewed and in electronic medical record. GENERAL: Patient is a well-developed, well-nourished male in no acute distress. HEAD: Atraumatic, normocephalic. EYES: Sclerae anicteric. MOUTH: Moist mucous membrane. LUNGS: Clear bilaterally. CARDIOVASCULAR: Heart rate regular, 84 per minute without murmur, S3, or S4. EXTREMITIES: No edema. NEURO: Nonfocal. LABORATORY CBC on January 20, 2018 showed a WBC of 6.7, hemoglobin 13.5, hematocrit 39.3, platelets 338,000. CMP was within normal limits except for a mildly decreased sodium of 134. PSA increased from 4.5 in November, to 10.5 in December 2017. IMPRESSION AND PLAN The patient is an 83-year-old male who is being treated for metastatic prostate cancer, most recently on Lupron, Zometa and Xtandi. 1. Metastatic prostate cancer. Patient presented on January 20, 2018 with multiple complaints from the Xtandi including dizziness, overall fatigue and hallucinations with bad dreams. He actually discontinued this on January 11, 2018. PSA on January 20, 2018 had increased to 10.5. We reviewed that this may or may not have been related to his stopping the Xtandi as this appeared to be a trend of increasing PSA. I reviewed this with Dr. Mcfarlane. Labs will be repeated in early February to further assess PSA trend. He will follow up with Dr. Mcfarlane on 03/15/18. 2. Bone metastases. Continue Zometa every three months, next due in March 2018. 3. Continue Lupron every three months, next due in mid March 2018. 4. Chronic back pain. He believes this is stable. Bone scan in August 2017 showed stability from previous bone scan. He does not feel his back pain is worse and he plans to start exercises in the near future. 5. Follow up in early February for labs including CBC, CMP and PSA. 6. Follow up with Dr. Mcfarlane on March 15, 2018 for continued care. DARRICK
[2018-03-08 08:38] VITALS: BP 151/95
[2018-03-08 09:00] LABS: PLATELET COUNT, AUTOMATED 256 K/uL (150-450)
[2018-03-15 09:33] VITALS: BP 129/80
--- NOTE | 2018-03-16 03:47 | [facility] ONCOLOGY NOTE ---
EVENT DATE: March 15, 2018 CHIEF COMPLAINT/REASON FOR VISIT Mr. Sanabria is a pleasant 83-year-old gentleman with metastatic prostate cancer, here for followup with a rising PSA. HISTORY OF PRESENT ILLNESS Mr. Sanabria returns. He has been on both Xtandi and Lupron, with the last Lupron on January 11, 2018. In December, he was having considerable side effects from the new Xtandi, including dizziness, fatigue, and some hallucinations. Thus, he stopped this medication. He is on Lupron alone. He is here today to discuss next options, as, unfortunately, his PSA continues to climb. It is back up to around 13. It has been higher than this in the past, with an initial PSA of 18 back in 2007. He has a [place] 7 prostate cancer. No new symptoms. No change in his pain, although he does have chronic back pain. Fatigue is his biggest complaint, and he feels that it is worse. He is struggling with managing his diabetes, and this may be playing a role with his fatigue as well. ONCOLOGY HISTORY Patient was first diagnosed in June 2007 with a [place] 7 prostate cancer with PSA of 18, Initially treated with Lupron and external beam radiation therapy with seed implants in October 2007. He had focal radiation to the L4 vertebral body in 2012. In 2013, he had new bone metastasis and restarted Casodex. Unfortunately, he then developed progression in 2014 and tried Firmagon due to Lupron intolerance. However, in 2015, he had a rise in PSA, and so we switched back to Lupron and initiated Xtandi. PSA has been rising slowly, last 4.5. Patient self-discontinued Xtandi in mid December 2017. PSA again increased to 13. MEDICAL HISTORY 1. Prostate cancer, 2007. 2. Type 2 diabetes. 3. Hypertension. 4. Hyperlipidemia. SURGICAL HISTORY 1. Back surgery times four. 2. L4 fusion, February 2017. 3. Bilateral lens implant. 4. Left carpal tunnel surgery, December 2017. 5. Bilateral shoulder arthroscopy. FAMILY HISTORY Positive for diabetes and hyperlipidemia. SOCIAL HISTORY Patient is . 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 He has two daughters. He smoked, but quit many years ago. MEDICATIONS 1. Hydrocodone 5/325 mg every six hours p.r.n. pain. 2. Naproxen 220 mg t.i.d. 3. Mild thistle. 4. B12. 5. Levothyroxine 75 mcg tablet. 6. Metformin 500 mg two b.i.d. 7. Flomax 0.4 mg daily. ALLERGIES NEOSPORIN and LEVOFLOXACIN. REVIEW OF SYSTEMS CONSTITUTIONAL: No fever, chills, significant weight change. Positive fatigue. HEENT: No headache or vision changes. CARDIOVASCULAR: No chest pain, dyspnea on exertion, or edema. RESPIRATORY: No shortness of breath, wheeze, or cough. GASTROINTESTINAL: Nausea or vomiting. GENITOURINARY: No dysuria or hematuria. MUSCULOSKELETAL: No weakness or joint pain. Positive chronic back pain. He does have some left hand pain and had carpal tunnel syndrome surgery not long ago. ENDOCRINE: No heat or cold intolerance. PSYCHIATRIC: No anxiety or depression currently. Remainder of 14-point review of systems is otherwise negative. PHYSICAL EXAMINATION VITAL SIGNS: Blood pressure 129/80, pulse 81, respiratory rate 16, temperature 97.1 Fahrenheit, oxygen saturation 91% on room air. Weight 89.7 kg. Pain 2/10, fatigue 3/10. GENERAL: Stable condition, resting comfortably in the chair. HEENT: Normocephalic, atraumatic. CARDIOVASCULAR: Regular rate and rhythm. LUNGS: Clear to auscultation bilaterally. ABDOMEN: Soft, nontender, nondistended. EXTREMITIES: No clubbing, cyanosis, or edema. PSYCHIATRIC: Normal mood and affect. Remainder of physical exam is otherwise unremarkable. IMPRESSION/REPORT/PLAN Mr. Sanabria is a pleasant 83-year-old gentleman being treated with metastatic prostate cancer on Lupron and Zometa, who presents with the followin. Metastatic prostate cancer. He is unable to tolerate Xtandi and had problems with fatigue, dizziness, hallucinations. He does not want to try abiraterone, as he cannot tolerate "any prednisone." We discussed chemotherapy options including very low-dose carboplatin, which is usually well tolerated, but he does not want any chemotherapy. He tolerated Casodex well back in 2013, but we transitioned to another therapy. He did not fail this therapy. Thus, I think Casodex 50 to 150 mg daily would be a good added therapy. He agrees with me that he needs therapy at this time. 2. Bone metastases. Continue Zometa every three months, with the next due in March. 3. Continue Lupron, with the next due in March. 4. Chronic back pain. Stable. 5. Left hand pain after carpal tunnel syndrome. Can follow up with Surgery or Dr. Oliver, his primary care provider. Answered all of his many questions to me. BILLING Return visit, level 4. Total time 30 minutes, counseling time 20. MTDD
[2018-04-12 08:45] VITALS: BP 150/108
[2018-04-12 09:15] LABS: PLATELET COUNT, AUTOMATED 289 K/uL (150-450)
[~2018-04-19 08:26] MED LIST changes: -LOSA25TA52 PO; +LOSA25TA57 PO; -NS 0.9% IVPB ONE; -ZOLEDRONIC ACID IVPB ONE
[2018-04-19 08:34] VITALS: BP 145/78
[2018-04-19] MEDS ORDERED: LOSA25TA57 PO (08:39)
[2018-04-19 09:14] VITALS: BP 145/78
[2018-04-19] MEDS ORDERED: DEXTROSE 5% IVPB ONE (10:00)
[2018-04-19] MEDS ORDERED: ZOLEDRONIC ACID IVPB ONE (10:00)
--- NOTE | 2018-04-20 04:17 | ONCOLOGY FOLLOW UP NOTE ---
EVENT DATE: April 19, 2018 CHIEF COMPLAINT Followup for metastatic prostate cancer. HISTORY OF PRESENT ILLNESS Patient is an 83-year-old male who was seen today in followup. He is due to receive Zometa today. He was started on bicalutamide in mid-January 2018. Unfortunately, PSA had been climbing. He was unable to tolerate Xtandi. Today he notes some mild midthoracic pain. He has been using Aleve for this with good effect. He has had some minor lower-extremity swelling. Constipation is under control with MiraLAX. He does note some overall weakness and less stamina, but is trying to do home exercises. Glucoses have been "high." He will be due for his next Lupron on 04/27/[address] Aceves, but would like to see if he can get this here at our clinic. He noted a small nodule in his right side of his midback, and it has been concerning. He is also worried about the losartan due to recalls, and I have asked him to follow up with his pharmacy. ONCOLOGY HISTORY Patient was first diagnosed in June 2007 with a [place] 7 prostate cancer with PSA of 18. Initially treated with Lupron and external beam radiation therapy with seed implants in October 2007. He had focal radiation to the L4 vertebral body in 2012. In 2013, he had new bone metastasis and restarted Casodex. Unfortunately, he then developed progression in 2014 and tried Firmagon due to Lupron intolerance. However, in 2015, he had a rise in PSA, and so was switched back to Lupron and initiated Xtandi. PSA has been rising slowly, last 4.5. Patient self-discontinued Xtandi in mid December 2017. PSA again increased to 13.6. Began bicalutamide 50 mg daily in February 2018. MEDICAL HISTORY 1. Prostate cancer, 2007. 2. Type 2 diabetes. 3. Hypertension. 4. Hyperlipidemia. SURGICAL HISTORY 1. Back surgery times four. 2. L4 fusion, February 2017. 3. Bilateral lens implant. 4. Left carpal tunnel surgery, December 2017. 5. Bilateral shoulder arthroscopy. FAMILY HISTORY Positive for diabetes and hyperlipidemia. SOCIAL HISTORY Patient is . 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 He has two daughters. He smoked, but quit many years ago. MEDICATIONS 1. Naproxen 220 mg t.i.d. 2. Milk thistle. 3. B12. 4. Levothyroxine 75 mcg tablet. 5. Metformin 500 mg two b.i.d. 6. Flomax 0.4 mg daily. 7. Losartan 25 mg daily. 8. Bicalutamide 50 mg daily. ALLERGIES 1. NEOSPORIN. 2. LEVOFLOXACIN. 3. XTANDI -- tolerated poorly. REVIEW OF SYSTEMS A 12-point review of systems is performed and is negative except as stated above. PHYSICAL EXAMINATION VITAL SIGNS: Weight 87 kg, blood pressure 145/78, pulse 86, respirations 16, temperature 97.3, O2 saturation 92%. GENERAL: Patient is a well-developed, well-nourished male in no acute distress. HEAD: Normocephalic, atraumatic. EYES: Sclerae anicteric. MOUTH: Moist mucous membrane. No lesions. NECK: Supple. No palpable adenopathy. LUNGS: Clear bilaterally. CARDIOVASCULAR: Heart rate regular, 86 per minute, without murmur, S3, or S4. EXTREMITIES: Trace pretibial edema bilaterally. NEURO: Nonfocal. LABORATORY CBC on 04/12/18 showed a WBC of 5.0, hemoglobin 14.0, hematocrit 41.3, platelets 289,000. CMP showed a BUN of 23, creatinine 1.3, random glucose 247. PSA again increased to 23.2. IMPRESSION AND PLAN The patient is an 83-year-old male who is being treated for metastatic prostate cancer, most recently on Lupron, Zometa and Xtandi. Due to increasing PSA, began bicalutamide in February 2018. 1. Metastatic prostate cancer. Patient will continue bicalutamide 50 mg daily. He has had no issues with hot flashes or gynecomastia. He does have some mild constipation as well as lower-extremity edema. He will continue bicalutamide 50 mg daily. I have asked him to monitor his lower-extremity swelling. PSA increased from 13.6 in February to 23.2 today. Will continue to monitor PSA on a monthly basis. 2. Bone metastases. Zometa 3.5 mg IV today. Dose is reduced due to renal insufficiency. He will receive this again in June 2018. 3. Continue Lupron. He will receive this per Dr. Aceves on 04/27/18. He plans to discuss whether he can receive the Lupron here at our office due to convenience. 4. Midthoracic pain. He has been using Aleve. I reviewed that this can potentially affect his renal function. He plans to talk with Dr. Oliver. I briefly mentioned tramadol for this. 5. Chronic renal insufficiency. Creatinine is fairly stable, today 1.3. As above, discussed avoiding nonsteroidal. Zometa dose is reduced. 6. Hyperglycemia. Patient states that his glucoses are "high" much of the time. He plans to follow up with Dr. Oliver. He is on metformin. 7. Follow up on 05/10/18 for CBC, CMP, and PSA. 8. Follow up with Dr. Mcfarlane on 06/21/18. Labs will be drawn on 06/14/18. MTDD
== END 2018-04-20 ==
LOC: ONC 08:26
PROVIDERS: ATTEND Internal Medicine
DX: C61 Malignant neoplasm of prostate (principal); C79.51 Secondary malignant neoplasm of bone; Z92.3 Personal history of irradiation; Z87.891 Personal history of nicotine dependence; M54.9 Dorsalgia, unspecified; E78.5 Hyperlipidemia, unspecified; E11.65 Type 2 diabetes mellitus with hyperglycemia; N18.9 Chronic kidney disease, unspecified; E11.22 Type 2 diabetes mellitus with diabetic chronic kidney disease; I12.0 Hypertensive chronic kidney disease with stage 5 chronic kidney disease or end stage renal disease
CPT/HCPCS: 36415; 81001; 84153; 85025; G0463; J3489; J7050; J7060; 82040; 82247; 82310; 82374; 82435; 82565; 82947; 84075; 84132; 84155; 84295; 84450; 84460; 84520; 96365; 99212

== ENCOUNTER → 2018-05-10 | Outpatient (CLI) | payer MEDICARE, OTHER ==
[2015-05-26 11:20] VITALS: BMI 30.6
[~2018-05-10] MED LIST changes: -DEXTROSE 5%(*) 100 ML BAG 100 ML IVPB PRN; -LIDOCAINE/SOD BICARB 8.4% SYR ID PRN; -NS(*) 0.9% 100 ML BAG 100 ML IVPB PRN
== END ==
LOC: SPU 08:31
PROVIDERS: ATTEND Urology
DX: C61 Malignant neoplasm of prostate (principal); R97.20 Elevated prostate specific antigen [PSA]
CPT/HCPCS: 36415; 84403

== ENCOUNTER 2018-08-02 12:00 | Outpatient (RCR) | payer MEDICARE, OTHER ==
[2015-05-26 11:20] VITALS: Wt 88.8 kg
[2018-05-10 08:34] VITALS: BP 145/51
[2018-05-10 08:52] LABS: PLATELET COUNT, AUTOMATED 287 K/uL (150-450)
[2018-06-14 09:50] VITALS: BP 132/74
[2018-06-14 10:01] LABS: PLATELET COUNT, AUTOMATED 257 K/uL (150-450)
--- NOTE | 2018-06-14 14:49 | ONCOLOGY FOLLOW UP NOTE ---
EVENT DATE: June 14, 2018 CHIEF COMPLAINT Patient is here today for labs related to metastatic prostate cancer followup. While in clinic, he reported URI-like symptoms of approximately three days. HISTORY OF PRESENT ILLNESS Patient is an 83-year-old male seen today as an add-on after patient reported some symptoms consistent with possibly a viral upper respiratory infection. He is not due for treatment today and was in simply for labs. He is on Zometa as well as bicalutamide, which he began in mid-January 2018. Unfortunately, PSA had been climbing and he was unable to tolerate Xtandi. He is no longer on this. He also remains on Lupron, which he received through his urologist, Dr. Aceves's office. He received a dose through their office on April 27, 2018. He has had some constipation in the past as well, which is under good control with MiraLAX. He has had some overall generalized weakness and decreased stamina but continues to try to do home exercises. He is also the primary caregiver for his . He tells me that he has been using [id number] supportive care measures for his cold to include cough syrup, lozenges, increasing oral fluids and using a humidifier. He has a daughter who is a nurse and he reports that she was in to see him on Thursday night and stated he had a low temperature, although patient cannot recall. Currently, he tells me that he has quite a bit of nasal drainage and is constantly blowing his nose and this is yellow/green colored. He does have an occasionally productive cough with similar type sputum. This is making him feel more run down than usual. He did have quite a bit of a sore throat but this has now improved over the last couple of days. He is up to date with flu vaccine for this reason. ONCOLOGY HISTORY Patient was first diagnosed in June 2007 with a [place] 7 prostate cancer with PSA of 18. Initially treated with Lupron and external beam radiation therapy with seed implants in October 2007. He had focal radiation to the L4 vertebral body in 2012. In 2013, he had new bone metastasis and restarted Casodex. Unfortunately, he then developed progression in 2014 and tried Firmagon due to Lupron intolerance. However, in 2015, he had a rise in PSA, and so was switched back to Lupron and initiated Xtandi. PSA has been rising slowly, last 4.5. Patient self-discontinued Xtandi in mid December 2017. PSA again increased to 13.6. Began bicalutamide 50 mg daily in February 2018. PAST MEDICAL HISTORY 1. Prostate cancer, 2008. 2. Type 2 diabetes. 3. Hypertension. 4. Hyperlipidemia. PAST SURGICAL HISTORY 1. Back surgery times four. 2. L4 fusion, February 2017. 3. Bilateral lens implant. 4. Left carpal tunnel surgery, December 2017. 5. Bilateral shoulder arthroscopy. FAMILY HISTORY Positive for diabetes and hyperlipidemia. SOCIAL HISTORY Patient is . 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 He has two daughters. He smoked, but quit many years ago. MEDICATIONS 1. Naproxen 220 mg t.i.d. 2. Milk thistle. 3. B12. 4. Levothyroxine 75 mcg tablet. 5. Metformin 500 mg two b.i.d. 6. Flomax 0.4 mg daily. 7. Losartan 25 mg daily. 8. Bicalutamide 50 mg daily. ALLERGIES 1. NEOSPORIN. 2. LEVOFLOXACIN. 3. XTANDI -- tolerated poorly. REVIEW OF SYSTEMS A 12-point review of systems is performed today and is otherwise negative. PHYSICAL EXAMINATION VITAL SIGNS: Temperature 97.8 degrees Fahrenheit, P 90, R 16, BP 132/74, oxygen saturation 91% room air. GENERAL: This is a pleasant, 83-year old male who appears well-nourished, well- developed and is in no acute distress. His voice does sound somewhat muffled from nasal congestion and stuffiness. HEAD: Normocephalic, atraumatic. EYES: Sclerae anicteric. ENT/MOUTH: Moist mucous membranes. There is clear rhinorrhea noted to bilateral turbinates. Pharynx is mildly erythematous, no plaques or exudates. NECK: Supple. No palpable adenopathy. No JVD. LUNGS: Clear breath sounds with diminished spaces to auscultation bilaterally. Respiratory effort is largely normal. CARDIOVASCULAR: Regular rate and rhythm. No ectopy. EXTREMITIES: Trace pretibial edema bilaterally. No clubbing. No cyanosis. NEURO: Grossly nonfocal. Patient is awake, alert, oriented x3. PSYCH: Mood and affect are appropriate and within normal limites. LABORATORY CBC today: WBC of 5.3, ANC 3.4, hemoglobin 14.2, hematocrit 41.1%, platelets 257,000. CMP today: Sodium 134, somewhat lower compared to 136 on May 10, 2018, potassium normal at 4.5, serum creatinine slightly elevated at 1.3, random glucose elevated at 253, on par with last glucose at 276 on May 10, 2018, calcium normal at 8.9. Total bilirubin normal at 0.5. AST normal at 28. ALT normal at 24. Alkaline phosphatase normal at 56. Total protein normal at 7.9. PSA, which returned post visit is up to 27.2 today, up from 25.2 previously on May 10, 2018. IMAGING [facility] 22, 2017: 1. There are multiple areas of isotope uptake as detailed above. Most appear similar to the prior bone scan. These appear to be a combination of known sclerotic metastases and old fractures. 2. There is faint isotope uptake seen along the medial aspect of the left 8th and 10th ribs. New metastatic foci cannot be totally excluded and correlation with cross-sectional imaging may be helpful. 3. Comparison made to MR T- spine from March 05, 2016, bone scan from November 26, 2015, CT abdomen and pelvis from November 30, [address] of the thorax August 2015. IMPRESSION AND PLAN The patient is an 83-year-old male who is being treated for metastatic prostate cancer, most recently on Lupron, Zometa and Xtandi. Due to increasing PSA, began bicalutamide in February 2018. 1. Metastatic prostate cancer. Patient will continue daily bicalutamide 50 mg. He is not reporting any significant issues of either hot flashes or gynecomastia but is aware to let us know for any of these symptoms. He has had some mild constipation as well as lower extremity edema, which we will continue to monitor. 2. Prostate specific antigen done today was pending at time of visit. Returned back elevated at 27.2 today. He is scheduled to follow up with his medical oncologist next week and we will discuss this at that time. 3. Bone metastases. Patient will continue on Zometa, renally reduced secondary to his renal insufficiency. He will be due for this again in June 2018. 4. He will continue on Lupron. He received this via his urologist, Dr. Aceves. Again, he is aware that he can receive this at our office for convenience if he'd like. 5. Chronic renal insufficiency: He is aware to avoid nonsteroidal anti- inflammatories. His creatinine is slightly up today at 1.3, although this is pretty much on par with his baseline. He is increasing his oral intake due to his recent upper respiratory type symptoms. 6. Hyperglycemia. We will continue to monitor this and he is to follow up with his PCP, Dr. Oliver. He is also on Metformin. 7. For his recent symptoms, I have e-prescribed Z-Johan today. I have given the patient instructions on how to take this. Specifically, he is to take two 250 mg tablets today on day 1, followed by one 250 mg tablet daily for the next four days. He is to notify us for any fevers greater than 100.5 degrees Fahrenheit. 8. He will follow up with Dr. Mcfarlane on June 21, 2018. [facility]
[2018-06-28 09:26] VITALS: BP 131/81
--- NOTE | 2018-06-28 13:46 | [facility] ONCOLOGY NOTE ---
EVENT DATE: June 28, 2018 CHIEF COMPLAINT/REASON FOR VISIT Mr. Sanabria is a pleasant 83-year-old gentleman with metastatic prostate cancer, here for followup with a continuing elevation of his PSA. HISTORY OF PRESENT ILLNESS Mr. Sanabria returns. He did not tolerate the Xtandi due to dizziness, fatigue and some hallucinations. We continued the Lupron but added Casodex 50 mg in February 2018. His PSA continues to rise, although the doubling time may be slightly less. We are due for imaging and plan to get a bone scan and CT scans to see if radiation therapy would be of any value. We last did this last August. No new symptoms, thankfully. No change in his pain, although he does have chronic back pain. Fatigue continues to be an issue and he is struggling with his diabetes. His glucose was above 200 at the last check as well. He is also struggling with caring for his , who struggles with dementia unfortunately. We did discuss chemotherapy and in the past Mr. 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 ONCOLOGY HISTORY Patient was first diagnosed in June 2007 with a [place] 7 prostate cancer with PSA of 18, Initially treated with Lupron and external beam radiation therapy with seed implants in October 2007. He had focal radiation to the L4 vertebral body in 2012. In 2013, he had new bone metastasis and restarted Casodex. Unfortunately, he then developed progression in 2014 and tried Firmagon due to Lupron intolerance. However, in 2015, he had a rise in PSA, and so we switched back to Lupron and initiated Xtandi. PSA has been rising slowly, last 4.5. Patient self-discontinued Xtandi in mid December 2017. PSA again increased to 13. After discontinuing the Xtandi, we added Casodex 50 mg in February 2018. No significant response on increasing the dose to 100 mg on June 28, 2018. We are also getting re-staging of imaging to see if radiation therapy would be of any value. MEDICAL HISTORY 1. Prostate cancer, 2007. 2. Type 2 diabetes. 3. Hypertension. 4. Hyperlipidemia. SURGICAL HISTORY 1. Back surgery times four. 2. L4 fusion, February 2017. 3. Bilateral lens implant. 4. Left carpal tunnel surgery, December 2017. 5. Bilateral shoulder arthroscopy. FAMILY HISTORY Positive for diabetes and hyperlipidemia. ALLERGIES Neosporin and Levofloxacin. REVIEW OF SYSTEMS CONSTITUTIONAL: No fever, chill. Positive fatigue. HEENT: No headache or vision changes. CARDIOVASCULAR: No chest pain, dyspnea on exertion or edema. RESPIRATORY: No shortness of breath, wheeze, or cough. GASTROINTESTINAL: No nausea or vomiting. GENITOURINARY: No dysuria or hematuria. MUSCULOSKELETAL: Positive chronic back pain. No weakness or joint pain. ENDOCRINE: No heat or cold intolerance. Remainder of 14-point review of systems is otherwise negative. PHYSICAL EXAMINATION VITAL SIGNS: Blood pressure 131/81, pulse 80, respiratory rate 16, temperature 97.3 Fahrenheit, oxygen saturation 90% on room air. Weight 88.8 kg. Pain 0/10. Fatigue 2/10. Fall risk: Low. GENERAL: Stable condition, resting comfortably in the chair. HEENT: He has a lesion under a bandage that he has scratched. Recommend he follow up with his primary care or dermatology. SKIN: He does have what appears to be an irritated seborrheic keratosis versus actinic keratosis. He and his thinks it is getting smaller and better, which makes me think it is a seborrheic keratosis. CARDIOVASCULAR: Regular rate and rhythm. LUNGS: Clear. ABDOMEN: Soft, nontender. No organomegaly or masses appreciated. EXTREMITIES: No clubbing, cyanosis or edema. LYMPHATIC EXAM: Negative. Remainder of exam is unremarkable. IMPRESSION/REPORT/PLAN Mr. Sanabria is a pleasant 83-year-old gentleman with the followin. Metastatic prostate cancer, on Lupron, Casodex and Zometa. We will increase the Casodex up to 100 mg from 50 mg. This will be called in. We again discussed chemotherapy options including a very low-dose carboplatin. He does not want to try abiraterone as he cannot tolerate "any prednisone". He was unable to tolerate Xtandi due to fatigue, dizziness and hallucinations. 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 2. Bone metastases. Continue Zometa. We will repeat imaging with a bone scan and CT scans. If there is any area of concern, we may consider radiation as well. 3. Chronic back pain, unchanged. 4. I answered all of their many questions today. BILLING Return visit, level 4. Total time 30 minutes, counseling time 20. High risk, high complexity. MTDD
[2018-07-30 09:09] VITALS: BP 121/83
[2018-07-30 09:14] LABS: PLATELET COUNT, AUTOMATED 280 K/uL (150-450)
[~2018-08-02 12:00] MED LIST changes: +AZIT-18 PO
[2018-08-02] MEDS ORDERED: ZOLEDRONIC ACID 4 MG/5 ML VIAL 3.3 MG in NS(*) 0.9% 100 ML BAG 100 ML IVPB ONE (15:00)
[2018-08-02 15:16] VITALS: BP 137/88
[2018-08-02 15:43] VITALS: BP 119/71
[2018-08-02] MEDS ORDERED: DEXTROSE 5%(*) 100 ML BAG 100 ML IVPB PRN (15:45)
[2018-08-02] MEDS ORDERED: LIDOCAINE/SOD BICARB 8.4% SYR ID PRN (15:45)
[2018-08-02] MEDS ORDERED: NS(*) 0.9% 100 ML BAG 100 ML IVPB PRN (15:45)
--- NOTE | 2018-08-04 11:27 | RADIOLOGY IMAGING REPORT ---
FACILITY: [facility] [place] PATIENT NAME: Navneet Sanabria : 1935 MR: [id number] V: [id number] EXAM DATE: ORDERING PHYSICIAN: YESSI JOSUE TECHNOLOGIST: Location: [facility] Patient: Navneet Sanabria : 1935 Visit/Account:[id number] Date of Sevice: 08/04/2018 CT CHEST ABDOMEN PELVIS W/CON HISTORY: Elevated PSA levels, no clinical complaints. TECHNIQUE: CT thoracic inlet to the pubic symphysis was obtained with IV contrast. One of the following dose optimization techniques was utilized in the performance of this exam: autom ated exposure control; adjustment of the mA and/or kV according to the patient's size; or use of an i terative reconstruction technique. Specific details can be referenced in the facility's radiology CT exam operational policy. CONTRAST: 75 mL Isovue-370 IV. COMPARISON: None. FINDINGS: CHEST: Lungs/pleura: There is a calcified granuloma right lower lobe (image 57 of 99). There is a calcifie d granuloma in the pleura of the right upper lobe (image 42 of 99). Remaining lung parenchyma is link ar. Mediastinum: Heart size is normal. Several normal-sized mediastinal lymph nodes are seen. Bones/soft tissues: Negative. ABDOMEN/PELVIS: Liver/gallbladder: The liver demonstrates homogeneous enhancement without evidence of mass. The gal lbladder is normal. Spleen: Normal. Adrenals: Normal. Pancreas: Normal enhancement without evidence of mass. Kidneys/: Both kidneys demonstrate normal enhancement without evidence of hydronephrosis or mass. The urinary bladder is normal. Pelvis/Bladder: Urinary bladder is normal. There are brachii therapy radiation seeds in the prostate bed. GI: There are diverticular changes on the sigmoid colon. The small bowel and the stomach are normal . Vessels/nodes: There is no abnormal lymph node along the right or left iliac chain. There are sever al small periaortic and aortocaval lymph nodes, the largest measures 9 mm (image 115 at 210). Bones/soft tissues: There are postoperative changes with fusion hardware lower lumbar spine. There is a sclerotic lesion in the left sacral [place]. There is a sclerotic lesion in the vertebral body at T11 and T5. Remaining bones demonstrate no evidence of a lytic or blastic lesion. IMPRESSION: 1. Sclerotic lesions in the left sacral tamym, T11 and T5 vertebral bodies. In a patient with histor y of prostate cancer or rising PSA, these are most consistent with metastatic lesions. Remaining bon es are normal. 2. Benign calcified granuloma right lower lobe and right upper lobe of the lung. 3. Several small lymph nodes in the retroperitoneal space in the periaortic and aortocaval space. A lthough these are normal size, and a patient with elevated PSA, prostate metastasis is in the differe ntial diagnosis. A PET CT may be helpful for further evaluation of the lymph nodes. Report Dictated By: Godfrey Hernandez at 08/04/2018 11:14 AM Report E-Signed By: Godfrey Hernandez at 08/04/2018 11:22 AM JULION:MAC
--- NOTE | 2018-08-05 09:05 | ONCOLOGY FOLLOW UP NOTE ---
EVENT DATE: August 02, 2018 CHIEF COMPLAINT Mr. Sanabria is here today for continuing care regarding his metastatic prostate cancer. HISTORY OF PRESENT ILLNESS Mr. Sanabria is a pleasant 83-year old gentleman with metastatic prostate cancer, here for followup. He did not tolerate Xtandi secondary to dizziness, fatigue and some hallucinations. We continued Lupron, although Casodex 50 mg was added in February 2018. His PSA continued to rise, although the doubling time may be slightly less. He is due for imaging and we did plan for repeat bone scan and CT scans after his last visit in order to evaluate if radiation therapy would be of any value. Today, he is here for ongoing Zometa infusion, which he received quarterly. He tolerates this well. This is renally dosed. He denies any change in his back pain, although he does still have chronic back pain. His fatigue continues to be an issue and he does struggle with his diabetes. He also continues to struggle caring for his , who unfortunately struggles with dementia related to Alzheimer's. We have discussed utilizing chemotherapy in the past, although Ms. Sanabria has indicated he is not interested in this, although he may entertain low-dose chemotherapy if he is proven to be castrate resistant. After his last visit in June, we increased his Casodex up to 100 mg. Mr. Sanabria tells me that he has increased this and reports good compliance. He remains on Lupron. ONCOLOGY HISTORY Patient was first diagnosed in June 2007 with a [place] 7 prostate cancer with PSA of 18, Initially treated with Lupron and external beam radiation therapy with seed implants in October 2007. He had focal radiation to the L4 vertebral body in 2012. In 2013, he had new bone metastasis and restarted Casodex. Unfortunately, he then developed progression in 2014 and tried Firmagon due to Lupron intolerance. However, in 2015, he had a rise in PSA, and so we switched back to Lupron and initiated Xtandi. PSA has been rising slowly, last 4.5. Patient self-discontinued Xtandi in mid December 2017. PSA again increased to 13. After discontinuing the Xtandi, we added Casodex 50 mg in February 2018. No significant response. Dose was increased to 100 mg on June 28, 2018. We are also getting re-staging scans to see if radiation therapy would be of any value. MEDICAL HISTORY 1. Prostate cancer, 2008. 2. Type 2 diabetes. 3. Hypertension. 4. Hyperlipidemia. SURGICAL HISTORY 1. Back surgery times four. 2. L4 fusion, February 2017. 3. Bilateral lens implant. 4. Left carpal tunnel surgery, December 2017. 5. Bilateral shoulder arthroscopy. FAMILY HISTORY Positive for diabetes and hyperlipidemia. SOCIAL HISTORY Patient is and lives with his and is struggling to care for her since she has severe dementia. He is a former smoker. ALLERGIES Neosporin and Levofloxacin. MEDICATIONS 1. Bicalutamide 100 mg daily. 2. Lupron Depo 22.5 mg IM every three months. 3. Levothyroxine 75 mcg daily. 4. Losartan potassium 25 mg p.o. q.d. 5. Metformin HCL 500 mg tablets two tablets p.o. b.i.d. 6. Milk Thistle 500 mg capsule 1000 mg p.o. every day. 7. Naproxen Sodium 220 mg capsule p.o. t.i.d. p.r.n. 8. Tamsulosin HCL 0.4 mg p.o. every day. REVIEW OF SYSTEMS CONSTITUTIONAL: Patient denies any recent fevers, chills or night sweats. No recent infections. He does have some fatigue. HEENT: No vision changes. No tinnitus. No dysphagia, odynophagia. No mouth sores. CARDIOVASCULAR: He denies any chest pain, syncope or presyncope. RESPIRATORY: No shortness of breath, cough, sputum production of pleuritic chest pain. No hemoptysis. GASTROINTESTINAL: No abdominal pain, nausea, vomiting, constipation, diarrhea, bright red blood per rectum or melena. Appetite is stable. GENITOURINARY: No dysuria or hematuria. No genitourinary discharge. MUSCULOSKELETAL: Positive for chronic back pain, unchanged. No new focal areas of pain. ENDOCRINE: No heat or cold intolerance. He has chronic fatigue. NEURO: He denies any headaches or seizure like activity. No complaints of new numbness or tingling. PSYCH: He denies any severe anxiety, severe depression, suicidal or homicidal ideation. The remainder of 12-point review of systems is performed today and is otherwise negative. PHYSICAL EXAMINATION VITAL SIGNS: Weight 88.8 kg, height 5' 7", T 97.3, P 78, R 16, BP 137/88, oxygen saturation 90% room air. Currently rates pain level at "1/10". GENERAL: This is a pleasant 83-year old gentleman who appears well-hydrated, well-nourished and is in no acute distress. HEAD: Atraumatic, normocephalic. EYES: Sclerae anicteric. ENT/MOUTH: Moist mucous membranes. No mucositis. NECK: Supple. No lymphadenopathy. CARDIOVASCULAR: Regular rate and rhythm. No ectopy. LUNGS: Clear breath sounds to auscultation bilaterally. No focal findings. ABDOMEN: Soft, obese, nontender, nondistended. Bowel sounds positive x4. No organomegaly. EXTREMITIES: No clubbing, cyanosis or edema. PSYCH: Mood and affect are appropriate. NEURO: Patient is awake, alert, oriented x3. MUSCULOSKELETAL: Ambulation and gait are steady. DERM: No rash. No petechiae or purpura. LABORATORY Labs were currently pending at time of visit, although after visit labs revealed WBC 5.3, ANC 3.2, hemoglobin 13.5, hematocrit 39.4%, platelets 280,000. CMP: Unremarkable with exception of elevated creatinine of 1.4, up from 1.3 on June 14, 2018. He does have chronic renal insufficiency. Glucose still elevated, although improved at 152; previously this was 253 on June 14, 2018. Patient has a history of diabetes. Calcium normal at 9.4, total bilirubin normal at 0.5, LFTs normal with AST at 26, ALT 22, alkaline phosphatase normal at 52. Total protein normal at 7.6 with albumin of 4.7. PSA today: 23.7, down from 27.2 on June 14, 2018. IMPRESSION/PLAN Mr. Sanabria is a pleasant 83-year-old gentleman with the followin. Metastatic prostate cancer, on Lupron, Casodex and Zometa. He remains on Lupron every three months. He is now on Casodex 100 mg daily, which we increased after his last visit on June 28, 2018. He has been on increased dose now for just over a month. He is tolerating that well. We will continue on this regimen for now. Zometa will be due today and he will continue to receive this quarterly. This is renally dosed. He is aware of possibility for chemotherapy if he becomes castrate resistant and we have discussed very low- dose carboplatin. He does not want to try abiraterone as he "cannot tolerate any prednisone". He was unable to tolerate Xtandi secondary to fatigue, dizziness and hallucinations. He is aware that our concern is that he may now be becoming castrate resistant and may, indeed, need chemotherapy. 2. Prostrate specific antigen was pending at time of visit. 3. Bone metastases: We will continue Zometa. Again, will be due for that today and will continue on quarterly dosing for that. 4. Imaging: I have ordered repeat CT scan and bone scan today. I would like for patient to have this done in the very near future. If there are any areas of concern, we may consider radiation. This was discussed today. 5. Chronic back pain: Unchanged. 6. I will call the patient back once prostrate specific antigen results are available as they were not available during time of visit due to computer system. 7. I have asked patient to return to clinic in three to four weeks so that we can review CT scan and bone scan results which were ordered today. MTDD
== END 2018-08-08 ==
LOC: ONC 12:00
PROVIDERS: ATTEND Nurse Practitioner
DX: C61 Malignant neoplasm of prostate (principal); C79.51 Secondary malignant neoplasm of bone; K59.00 Constipation, unspecified; R60.0 Localized edema; N28.9 Disorder of kidney and ureter, unspecified; R73.9 Hyperglycemia, unspecified; Z87.891 Personal history of nicotine dependence; Z79.899 Other long term (current) drug therapy; M54.9 Dorsalgia, unspecified; G89.29 Other chronic pain
CPT/HCPCS: 36415; 71260; 74177; 84153; 84403; 85025; 96365; G0463; J3489; J7050; Q9967; 82040; 82247; 82310; 82374; 82435; 82565; 82947; 84075; 84132; 84155; 84295; 84450; 84460; 84520; 99212

== ENCOUNTER → 2018-08-11 | Outpatient (CLI) | payer MEDICARE, OTHER ==
[2015-05-26 11:20] VITALS: BMI 30.6
--- NOTE | 2018-08-11 14:27 | RADIOLOGY IMAGING REPORT ---
FACILITY: [facility] [place] PATIENT NAME: Navneet Sanabria : 1935 MR: [id number] V: [id number] EXAM DATE: ORDERING PHYSICIAN: YESSI JOSUE TECHNOLOGIST: [place] [facility] [place] Navneet Sanarbia : 1935 Visit/Account:[id number] Date of Sevice: 08/11/2018 NM BONE SCAN COMPLETE HISTORY: Prostate cancer TECHNIQUE: 23.0 mCi technetium 99m HDP was injected intravenously. Delayed anterior and posterior wh ole body gamma camera images were obtained. Additional gamma camera images: Right left lateral skull COMPARISON: Bone scan September 22, [address] chest abdomen pelvis August 04, 2018 FINDINGS: Bone radiotracer activity: Increased uptake is noted along multiple contiguous ribs along the amanuel lateral left chest wall similar to the prior study and consistent with old rib fractures. Increased uptake along the anterior aspect the right first rib appears similar to the prior study con sistent with a known metastatic lesion. Previously noted uptake along the posterior aspect the left seventh rib and posterior aspect right sixth rib is no longer seen. Increased uptake at T5 has increased when compared to the prior study and corresponds to a known meta static focus. . No abnormal uptake is identified at T11 to account for the sclerotic lesions seen on the recent CT . Increased uptake also not identified at the left sacral tammy to account for the sclerotic lesions see n on the recent CT. Increased uptake over the lower lumbar spine appears similar to the prior study and corresponds to th e postoperative changes on the recent CT. There are multifocal areas of degenerative type uptake seen over the shoulders wrists and knees and a nkles Extraosseous radiotracer activity: Unremarkable. Renal and urinary collecting system activity: Unremarkable. IMPRESSION: Increased uptake along the anterior aspect the right first rib appears similar to the prior study con sistent with the known metastatic lesion Increased uptake at T5 has increased when compared the prior study and corresponds to a known metasta tic lesion Previously noted uptake along the posterior aspect the left seventh rib and posterior aspect of the r ight sixth rib is no longer seen No abnormal uptake is identified at T11 nor along the left sacral tammy to account for the sclerotic l esion seen on the recent CT Report Dictated By: Vilma Glasgow MD at 08/11/2018 2:10 PM Report E-Signed By: Vilma Glasgow MD at 08/11/2018 2:23 PM WSN:[email or web address]
== END ==
LOC: NUC 00:52
PROVIDERS: ATTEND Nurse Practitioner
DX: C61 Malignant neoplasm of prostate (principal)
CPT/HCPCS: 78306; A9503

== ENCOUNTER → 2018-10-25 | Outpatient (CLI) | payer MEDICARE, OTHER ==
[2015-05-26 11:20] VITALS: BMI 30.6
[~2018-10-25] MED LIST changes: +CALC1TAB32 PO; +CETI5TAB25 PO; +CYA1000 PO; +CYCL10TA29 PO; +DICL100G39 TOP; +MULT-27 PO; +PANT20TA27 PO; +PANT40TA65 PO; +TRIA80OI13 TP; +magic mouthwash PO
== END ==
LOC: SPU 08:44
PROVIDERS: ATTEND Family Medicine
DX: E03.9 Hypothyroidism, unspecified (principal); E11.9 Type 2 diabetes mellitus without complications
CPT/HCPCS: 36415; 83036; 84443

== ENCOUNTER 2018-11-01 09:56 | Outpatient (RCR) | payer MEDICARE, OTHER ==
[2015-05-26 11:20] VITALS: Ht 171.4 cm; Wt 88.7 kg
[2018-08-16 15:33] VITALS: BP 148/83
--- NOTE | 2018-08-18 02:33 | ONCOLOGY FOLLOW UP NOTE ---
EVENT DATE: August 16, 2018 CHIEF COMPLAINT/REASON FOR VISIT Mr. Sanabria is a pleasant 83-year-old gentleman with metastatic prostate cancer, here for followup. HISTORY OF PRESENT ILLNESS Mr. Sanabria returns. He did not tolerate the Xtandi due to dizziness, fatigue, and some hallucinations. We continued the Lupron but added Casodex 50 mg in February 2018. As his PSA continued to rise, we increased the Casodex to 100 mg, and his PSA started to fall. We obtained imaging this last month, and I reviewed it with him. The area in T5 looks concerning, and I would like him to follow up with Radiation Oncology to consider treatment for that area. I do not know if he has already had radiation there, as we have been watching that spot. He has been having some bone pain and muscle spasms. Thus, I would like him to follow up with Radiation Oncology regarding T5. Thankfully, no new side effects with the increased Casodex. We could increase it further to the maximum dose of 150 mg if necessary. ONCOLOGY HISTORY Patient was first diagnosed in June 2007 with a [place] 7 prostate cancer with PSA of 18, Initially treated with Lupron and external beam radiation therapy with seed implants in October 2007. He had focal radiation to the L4 vertebral body in 2012. In 2013, he had new bone metastasis and restarted Casodex. Unfortunately, he then developed progression in 2014 and tried Firmagon due to Lupron intolerance. However, in 2015, he had a rise in PSA, and so we switched back to Lupron and initiated Xtandi. PSA has been rising slowly, last 4.5. Patient self-discontinued Xtandi in mid December 2017. PSA again increased to 13. After discontinuing the Xtandi, we added Casodex 50 mg in February 2018. No significant response on increasing the dose to 100 mg on June 28, 2018. We are also getting re-staging of imaging to see if radiation therapy would be of any value. MEDICAL HISTORY 1. Prostate cancer, 2007. 2. Type 2 diabetes. 3. Hypertension. 4. Hyperlipidemia. SURGICAL HISTORY 1. Back surgery times four. 2. L4 fusion, February 2017. 3. Bilateral lens implant. 4. Left carpal tunnel surgery, December 2017. 5. Bilateral shoulder arthroscopy. FAMILY HISTORY Positive for diabetes and hyperlipidemia. ALLERGIES NEOSPORIN and LEVOFLOXACIN. REVIEW OF SYSTEMS CONSTITUTIONAL: No fever, chills. Positive fatigue. HEENT: No headache or vision changes. CARDIOVASCULAR: No chest pain, dyspnea on exertion or edema. RESPIRATORY: No shortness of breath, wheeze, or cough. GASTROINTESTINAL: No nausea or vomiting. GENITOURINARY: No dysuria or hematuria. MUSCULOSKELETAL: Positive chronic back pain. No weakness. Positive joint pains in the hands. I believe this is osteoarthritis. ENDOCRINE: No heat or cold intolerance. Remainder of 14-point review of systems is otherwise negative. PHYSICAL EXAMINATION VITAL SIGNS: Blood pressure 148/83, pulse 81, respiratory rate 16, temperature 98.1 Fahrenheit, oxygen saturation 93% on room air. Weight 89.3 kg. Pain 0/10, fatigue 2/10. GENERAL: Stable condition, resting comfortably in the chair. HEENT: Normocephalic, atraumatic. CARDIOVASCULAR: Regular rate and rhythm. ABDOMEN: Soft, obese. MUSCULOSKELETAL: No spasms today. EXTREMITIES: He does have some swelling of the joints, mostly of the MCPs. Followup with his primary care provider. Remainder of physical exam unremarkable. IMPRESSION/REPORT/PLAN Mr. Sanabria is a very pleasant 83-year-old gentleman with the followin. Metastatic prostate cancer, on Lupron, Casodex 100 mg and Zometa. We again discussed chemotherapy options, including very low-dose carboplatin, but he does not want to pursue this. We have previously discussed abiraterone, but he does not want this because he cannot tolerate "any prednisone." He has been having problems with post-traumatic stress disorder recently, and so I understand his concern. He believes that the Xtandi seemed to bring on some of these post- traumatic stress disorder symptoms, perhaps. 2. Bone metastases. Continue Zometa. I am concerned about his T5 area and would like him to see Radiation Oncology. 3. Chronic back pain. 4. Osteoarthritis. 5. Post-traumatic stress disorder. He is working with a non-medical counselor and [employer] applications analyst for this. He thinks that that is helping. BILLING Return visit level 4. Total time 30 minutes, counseling time 20. MTDD
[2018-09-09 13:28] VITALS: BP 122/84
[2018-09-09 13:52] LABS: PLATELET COUNT, AUTOMATED 314 K/uL (150-450)
[2018-09-13 09:49] VITALS: BP 136/76
--- NOTE | 2018-09-14 11:49 | ONCOLOGY FOLLOW UP NOTE ---
EVENT DATE: [*] CHIEF COMPLAINT Followup for metastatic prostate cancer. HISTORY OF PRESENT ILLNESS Patient is an 83-year old male who is seen today in followup. He continues on increased dose of bicalutamide to 150 mg daily. He also receives Lupron on an every three month ass as well as Zometa. He will begin radiation to T5 on September 13, 2018. He is generally doing well. He does have some fatigue but otherwise denies any new complaints. ONCOLOGY HISTORY Patient was first diagnosed in June 2007 with a [place] 7 prostate cancer with PSA of 18. Initially treated with Lupron and external beam radiation therapy with seed implants in October 2007. He had focal radiation to the L4 vertebral body in 2012. In 2013, he had new bone metastasis and restarted Casodex. Unfortunately, he then developed progression in 2014 and tried Firmagon due to Lupron intolerance. However, in 2015, he had a rise in PSA, and so was switched back to Lupron and initiated Xtandi. PSA has been rising slowly, last 4.5. Patient self-discontinued Xtandi in mid December 2017. PSA again increased to 13.6. Began bicalutamide 50 mg daily in February 2018. PSA has remained fairly stable in the mid 20 range after increasing bicalutamide to 150 mg daily. Began radiation to T5 on September 13, 2018. MEDICAL HISTORY 1. Prostate cancer, 2007. 2. Type 2 diabetes. 3. Hypertension. 4. Hyperlipidemia. SURGICAL HISTORY 1. Back surgery x four. 2. L4 fusion, February 2017. 3. Bilateral lens implant. 4. Left carpal tunnel surgery, December 2017. 5. Bilateral shoulder arthroscopy. FAMILY HISTORY Positive for diabetes and hyperlipidemia. SOCIAL HISTORY Patient is . 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 He has two daughters. He smoked, but quit many years ago. MEDICATIONS 1. Naproxen 220 mg t.i.d. 2. Milk thistle. 3. B12. 4. Levothyroxine 75 mcg tablet. 5. Metformin 500 mg two b.i.d. 6. Flomax 0.4 mg daily. 7. Losartan 25 mg daily. 8. Bicalutamide 150 mg daily. ALLERGIES 1. NEOSPORIN. 2. LEVOFLOXACIN. 3. XTANDI -- tolerated poorly. REVIEW OF SYSTEMS A 12-point review of systems is performed and is negative except as stated above. PHYSICAL EXAMINATION VITAL SIGNS: Blood pressure 136/76, pulse 80, respirations 16, temperature 97.2, O2 sat 96%. GENERAL: Patient is a well-developed, well-nourished male in no acute distress. He ambulates slowly with a cane. HEAD: Normocephalic, atraumatic. EYES: Sclerae anicteric. MOUTH: Moist mucous membranes. NECK: Supple. No palpable adenopathy. LUNGS: Clear bilaterally. CARDIOVASCULAR: Heart rate regular, 80 per minute, without murmur. EXTREMITIES: No edema. NEURO: Nonfocal. LABORATORY CBC on September 09, 2018 showed a WBC of 6.8, hemoglobin 13.9, hematocrit 40.5, platelets 314,000. CMP was within normal limits. Vitamin D 43. PSA 24.1. IMPRESSION The patient is an 83-year-old male who is being treated for metastatic prostate cancer. He did not tolerate Xtandi. Currently on Lupron every three months, Zometa every three months and bicalutamide, which was recently increased to 150 mg daily. PLAN 1. Metastatic prostate cancer. Continue bicalutamide 150 mg daily. He is tolerating this without issue. He will continue Lupron on an every three month basis per Dr. Aceves, next due in approximately two weeks. 2. Bone lesion. Recent imaging showed active metastatic disease at T5, which was consistent with an area of bony sclerosis. He began IMRT for ten cycles today and tolerated his first treatment without issue. 3. Response. PSA has remained in the mid 20's range since March 2018. We will continue current treatment. 4. Nutrition. Patient has questions about any nutritional options that he can do to help his disease. We reviewed that there really were not any and the fact that he was eating well and not losing weight was a good sign. 5. Followup for Zometa every three months as scheduled. 6. Followup with Dr. Mcfarlane on November 01, 2018. CBC, CMP and PSA will be drawn before that time. [facility]
[2018-10-25 09:59] VITALS: BP 118/81
[2018-10-25 10:39] LABS: PLATELET COUNT, AUTOMATED 239 K/uL (150-450)
[2018-10-25 12:05] VITALS: BP 127/80
[~2018-11-01] VITALS: Ht 171.4 cm; Wt 88.7 kg
[~2018-11-01 09:56] MED LIST changes: +DEXTROSE 5%(*) 100 ML BAG 100 ML IVPB PRN; +LIDOCAINE/SOD BICARB 8.4% SYR ID PRN; +NS(*) 0.9% 100 ML BAG 100 ML IVPB PRN; +ZOLEDRONIC ACID 4 MG/5 ML VIAL 3.3 MG in NS(*) 0.9% 100 ML BAG 100 ML IVPB ONE
[2018-11-01 10:00] VITALS: BP 151/78
--- NOTE | 2018-11-01 11:14 | [facility] ONCOLOGY NOTE ---
EVENT DATE: November 01, 2018 CHIEF COMPLAINT/REASON FOR VISIT Mr. Sanabria is a pleasant 83-year old gentleman here for followup for metastatic prostate cancer. HISTORY OF PRESENT ILLNESS Mr. Sanabria returns. He continues on an increased dose of bicalutamide 150 mg daily. We need to check that he is taking three pills a day and not two pills a day as he was unsure about this. He also receives Lupron on an every three month basis as well as Zometa. He finished radiation to T5 in August 2018. Interestingly, he had some hair loss with this. He has had multiple radiation treatments in the past and may, therefore, be simply more sensitive. He feels the same. Pain may be better. Fatigue is still considerable. No new issues today, although he is discouraged by the PSA still being somewhat elevated. It dropped nicely from the 20s down to 13 after treatment. He is not interested in chemotherapy and is not interested in abiraterone or prednisone. We do not have many other treatment options. ONCOLOGY HISTORY Patient was first diagnosed in June 2007 with a Tootie 7 prostate cancer with PSA of 18. Initially treated with Lupron and external beam radiation therapy with seed implants in October 2007. He had focal radiation to the L4 vertebral body in 2012. In 2013, he had new bone metastasis and restarted Casodex. Unfortunately, he then developed progression in 2014 and tried Firmagon due to Lupron intolerance. However, in 2015, he had a rise in PSA, and so was switched back to Lupron and initiated Xtandi. PSA has been rising slowly, last 4.5. Patient self-discontinued Xtandi in mid December 2017. PSA again increased to 13.6. Began bicalutamide 50 mg daily in February 2018. PSA has remained fairly stable in the mid 20 range after increasing bicalutamide to 150 mg daily. Began radiation to T5 on September 13, 2018. MEDICAL HISTORY 1. Prostate cancer, 2008. 2. Type 2 diabetes. 3. Hypertension. 4. Hyperlipidemia. SURGICAL HISTORY 1. Back surgery x four. 2. L4 fusion, February 2017. 3. Bilateral lens implant. 4. Left carpal tunnel surgery, December 2017. 5. Bilateral shoulder arthroscopy. FAMILY HISTORY Positive for diabetes and hyperlipidemia. SOCIAL HISTORY Patient is . 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 He has two daughters. He smoked, but quit many years ago. MEDICATIONS 1. Naproxen 220 mg t.i.d. 2. Milk thistle. 3. B12. 4. Levothyroxine 75 mcg tablet. 5. Metformin 500 mg two b.i.d. 6. Flomax 0.4 mg daily. 7. Losartan 25 mg daily. 8. Bicalutamide 150 mg daily. ALLERGIES 1. NEOSPORIN. 2. LEVOFLOXACIN. 3. XTANDI -- tolerated poorly. REVIEW OF SYSTEMS CONSTITUTIONAL: No fevers or chills. Positive fatigue, chronic. HEENT: No headache, vision changes. CARDIOVASCULAR: No chest pain, dyspnea on exertion or edema. RESPIRATORY: No shortness of breath, wheeze or rough. GI: No nausea or vomiting. : No dysuria or hematuria. MUSCULOSKELETAL: No weakness, significant new joint pain or bone pain. PSYCHIATRIC: No anxiety or depression. ENDOCRINE: No heat or cold intolerance. SKIN: No concerning rashes or lesions Remainder of 14-point review of systems otherwise negative. PHYSICAL EXAMINATION VITAL SIGNS: Blood pressure 151/78, pulse 90, respiratory rate 16, temperature 96.8 Fahrenheit, oxygen saturation 92% on room air. Weight 88.7 kg. Pain 2/. Fatigue /. GENERAL: Stable condition, resting comfortably in the chair. HEENT: Normocephalic, atraumatic. CARDIOVASCULAR: Regular rate and rhythm. No murmur or rub. LUNGS: Clear to auscultation bilaterally. ABDOMEN: Soft, obese, nontender, nondistended. MUSCULOSKELETAL: Patient is able to ambulate with the use of a walking stick under his own strength. He does feel tired. Remainder of physical exam otherwise unremarkable. IMPRESSION/REPORT/PLAN Mr. Sanabria is a pleasant 83-year old gentleman with the following: Metastatic prostate cancer. Continue Lupron and Casodex 150 mg daily. Also continue Zometa. He is not interested in chemotherapy or abiraterone as it has prednisone. He does not tolerate any dose of prednisone "as it nearly killed me". His PSA improved nicely in my opinion with the addition of radiation. He is recovering from radiation. We will continue his current regimen and watch him. I advised him today that I think our next step would be low-dose carboplatin with an AUC of 2 weekly. Six out of seven weeks have tolerated. He is not interested in that at this time, although he does admit he may want to reconsider that if his PSA continues to rise. I answered all of their many questions today. BILLING Return level 4. Total time 30 minutes, counseling time 25 minutes. DARRICK
[2018-11-09] MEDS ORDERED: LOSA25TA57 PO (12:58)
== END 2018-11-14 ==
LOC: ONC 09:56
PROVIDERS: ATTEND Internal Medicine
DX: C61 Malignant neoplasm of prostate (principal); C79.51 Secondary malignant neoplasm of bone; Z79.818 Long term (current) use of other agents affecting estrogen receptors and estrogen levels; M54.9 Dorsalgia, unspecified; G89.29 Other chronic pain; F43.10 Post-traumatic stress disorder, unspecified
CPT/HCPCS: 82306; 83735; 84100; 84153; 85025; 96365; G0463; J3489; J7050; 82040; 82247; 82310; 82374; 82435; 82565; 82947; 84075; 84132; 84155; 84295; 84450; 84460; 84520; 99212